=== PATIENT | male | born 1965 | race Caucasian/White ===

== ENCOUNTER 2022-05-03 14:17 | Inpatient (IN) ==
[2022-05-03] MEDS ORDERED: VANCOMYCIN HCL 1,750 MG in SODIUM CHLORIDE 0.9% 500 ML IV ONE (14:41)
[2022-05-03] MEDS ORDERED: cefTRIAXone SODIUM 2,000 MG/70 ML BAG IV STA (14:41)
[2022-05-03] MEDS ORDERED: VANCOMYCIN CONSULT ACTIVE PRN (14:41)
--- NOTE | 2022-05-03 14:53 | Emergency Department Note ---
Impression & Plan Cellulitis of left arm ED Provider Note Provider: Chester Marte MD DATE OF SERVICE: 05/03/2022 CHIEF COMPLAINT: Left arm pain HISTORY OF PRESENT ILLNESS: Patient is a 57-year-old gentleman referred to the ER today by his primary care office for redness swelling and pain of his left arm. Patient states really began this past Tuesday. Was doing some training at home and resting his left elbow. States it was a bit of blister or wound here. Arm has become swollen over the weekend now with some associated headache and diffuse redness and swelling of the elbow up his arm into the left armpit. Denies trauma. Did have a blister on his elbow according to him and his significant other did drains clearish fluid. Does report a small wound on his right index finger as well today smaller in nature that had a blister that burst. Denies fever but has been using Tylenol and ibuprofen regularly to help with headache. No trauma to the arm or head reported. Denies confusion or shortness of breath. Pain with certain movements particularly elbow and shoulder. No reported history of diabetes or other infections in the past or severe. PAST MEDICAL HISTORY: As noted above MEDICATIONS: Aspirin, multivitamin SOCIAL HISTORY: Smoker PHYSICAL EXAM: GENERAL: alert and oriented in no acute distress on stretcher Head: normocephalic and atraumatic EYES: No injection, discharge or icterus. NECK: Trachea midline. ENT: Mucous membranes pink and moist. LUNGS: Airway patent. No retractions. Breath sounds clear with good air entry bilaterally. HEART: Regular rate and rhythm. No chest wall tenderness ABDOMEN: Soft and non-tender, without guarding or rebound. SKIN: Acyanotic, warm, dry, without rashes EXTREMITIES: Without swelling, tenderness or deformity except: There is signifi cant erythema and swelling of the left mid forearm up towards the left shoulder ending at the left armpit. Not circumferential erythema of the upper arm. An approximately 2 cm broken blister of the left elbow noted with some trace serous discharge. NEUROLOGICAL: No aphasia. No facial droop or slurred speech. Sensation to gross touch normal. Ambulatory. Limitations of ROM of the left elbow and shoulder related to pain. Patient's laboratory studies and imaging reviewed. Differential includes Cellulitis, abscess, MRSA infection, DVT, necrotizing fasciitis, dermatitis, drug eruption, allergic reaction, as well as other pathologies. IMPRESSION/MEDICAL DECISION MAKING: Patient with onset of significant arm pain and swelling initially with a blister with some drainage presented today with significant left arm pain. Did review the office note from [facility] office earlier today. No significant trauma and lower suspicion for bony injury. Will complete CT of this to exclude significant collection as this appears infectious in nature. Neurovascular intact in the left hand but limited movement of the elbow and shoulder due to pain. Has been using ibuprofen and Tylenol regularly. Believe headache likely related to probable infection. Basic labs obtained as well as cultures. Will cover broadly with vancomycin and ceftriaxone at this point. Does not appear in septic shock. Blood work here with some slight hypokalemia and hyponatremia.Leukocytosis of almost 20 without anemia with some slight thrombocytopenia. Mild procalcitonin elevation. Mild lactate elevation 2.7. Creatinine of 1.24. Negative COVID. Note AST ALT elevation. CT report shows diffuse edema without gas identified with a nonspecific myositis of the left upper extremity musculature with a small necrotic bursal fluid collection with a small low-attenuation collection within the proximal extensor compartment of the forearm. Soft compartments and I doubt compartment syndrome at this point with intact distal perfusion of the left upper extremity. Discussed with orthopedics on-call Dr. Walden. Recommended IV antibiotics at this time. Patient requires further care here at the hospital. Patient updated at bedside. Discussed with the hospitalist team. DIAGNOSIS: Left upper arm cellulitis DISPOSITION: Hospitalist will evaluate Patient was agreeable with this plan. Past Med/Surg History Medical History Tobacco use disorder Ventral hernia Surgical History History of tonsillectomy Family History Father Colorectal cancer Social History Smoking Status: Current every day smoker Feels Safe at Home: Yes Allergies Allergies Allergy/AdvReac Type Severity Reaction Status Date / Time No Known Allergies Allergy Unverified 05/03/22 17:23 Home Meds Home Medications Medication Instructions Recorded Confirmed aspirin 81 mg tablet,delayed 81 mg PO DAILY 05/03/22 05/03/22 release multivitamin 1 tab PO DAILY 05/03/22 05/03/22 Results & Data (ED) Vital Signs Vital Signs - 24 hr 05/03/22 14:22 05/03/22 14:29 05/03/22 14:29 Temperature 36.5 C Temperature Source Temporal Artery Scan Pulse Rate 106 H Pulse Rate [Apical] Pulse Rate from SpO2 Sensor Respiratory Rate 20 Respiratory Effort / Characteristics Non-Labored Spontaneous Respiratory Depth Normal Respiratory Pattern Regular Blood Pressure 192/73 H Blood Pressure [Right Arm] Blood Pressure Mean 112 Blood Pressure Mean [Right Arm] Pulse Oximetry 98 98 98 Oxygen Delivery Method Room Air Sepsis Recent Fever Within 48 Hours No Sepsis New/Unexplained Change in Mental Status No Sepsis Action Taken by Nursing No Action Required 05/03/22 16:18 05/03/22 15:35 05/03/22 16:16 Temperature Temperature Source Pulse Rate 100 H 109 H Pulse Rate [Apical] 108 H Pulse Rate from SpO2 Sensor 100 H 104 H Respiratory Rate 22 16 Respiratory Effort / Characteristics Respiratory Depth Respiratory Pattern Blood Pressure Blood Pressure [Right Arm] 154/96 H Blood Pressure Mean Blood Pressure Mean [Right Arm] 115 Pulse Oximetry 99 100 98 Oxygen Delivery Method Sepsis Recent Fever Within 48 Hours Sepsis New/Unexplained Change in Mental Status Sepsis Action Taken by Nursing 05/03/22 16:17 05/03/22 16:17 05/03/22 16:30 Temperature Temperature Source Pulse Rate 108 H Pulse Rate [Apical] Pulse Rate from SpO2 Sensor 104 H Respiratory Rate 21 Respiratory Effort / Characteristics Respiratory Depth Respiratory Pattern Blood Pressure 154/96 H 164/98 H Blood Pressure [Right Arm] Blood Pressure Mean 115 120 Blood Pressure Mean [Right Arm] Pulse Oximetry 98 Oxygen Delivery Method Sepsis Recent Fever Within 48 Hours Sepsis New/Unexplained Change in Mental Status Sepsis Action Taken by Nursing 05/03/22 16:30 05/03/22 17:00 05/03/22 17:00 Temperature Temperature Source Pulse Rate 109 H 105 H Pulse Rate [Apical] Pulse Rate from SpO2 Sensor 113 H Respiratory Rate 18 26 H Respiratory Effort / Characteristics Respiratory Depth Respiratory Pattern Blood Pressure 152/73 H Blood Pressure [Right Arm] Blood Pressure Mean 99 Blood Pressure Mean [Right Arm] Pulse Oximetry 98 Oxygen Delivery Method Sepsis Recent Fever Within 48 Hours Sepsis New/Unexplained Change in Mental Status Sepsis Action Taken by Nursing 05/03/22 17:30 05/03/22 17:30 05/03/22 18:00 Temperature Temperature Source Pulse Rate 110 H Pulse Rate [Apical] Pulse Rate from SpO2 Sensor 110 H Respiratory Rate 23 Respiratory Effort / Characteristics Respiratory Depth Respiratory Pattern Blood Pressure 144/75 H 140/80 Blood Pressure [Right Arm] Blood Pressure Mean 98 100 Blood Pressure Mean [Right Arm] Pulse Oximetry 94 Oxygen Delivery Method Sepsis Recent Fever Within 48 Hours Sepsis New/Unexplained Change in Mental Status Sepsis Action Taken by Nursing 05/03/22 18:00 Temperature Temperature Source Pulse Rate 116 H Pulse Rate [Apical] Pulse Rate from SpO2 Sensor 117 H Respiratory Rate 33 H Respiratory Effort / Characteristics Respiratory Depth Respiratory Pattern Blood Pressure Blood Pressure [Right Arm] Blood Pressure Mean Blood Pressure Mean [Right Arm] Pulse Oximetry 96 Oxygen Delivery Method Sepsis Recent Fever Within 48 Hours Sepsis New/Unexplained Change in Mental Status Sepsis Action Taken by Nursing Laboratory Data 05/03/22 15:09 05/03/22 15:09 Lab Results 05/03/22 05/03/22 05/03/22 Range/Units 15:09 15:09 15:09 WBC 19.98 H (4.8-10.8) K/ul RBC 4.45 L (4.70-6.10) M/uL Hgb 14.6 (14.0-18.0) g/dl POC Hgb (14.0-18.0) g/dl Hct 41.5 L (42.0-52.0) % POC Hct (42-52) % MCV 93.3 (80.0-100.0) fL MCH 32.8 (25.0-34.0) pg MCHC 35.2 (32.0-36.0) g/dL RDW Std Deviation 45.3 (36.4-46.3) fL RDW Coeff of Cinthia 13.2 (11.5-14.5) % Plt Count 121 L (130-400) K/uL MPV 10.7 (9.4-12.4) fL Immature Gran % (Auto) 0.4 % Neut % (Auto) 94.3 % Lymph % (Auto) 1.8 % [place] % (Auto) 2.2 % Eos % (Auto) 0.5 % Baso % (Auto) 0.8 % Neut # (Auto) 18.88 H (1.40-6.50) K/uL Lymph # (Auto) 0.35 L (1.2-3.4) K/uL [place] # (Auto) 0.43 (0.11-0.59) K/uL Eos # (Auto) 0.10 (0-0.50) K/uL Baso # (Auto) 0.15 (0-0.2) K/uL Immature Gran # (Auto) 0.07 (0.01-0.20) K/uL Toxic Granulation 1+ Dohle Bodies Occasional PT 10.9 (9.0-12.0) Seconds INR 1.0 (0.9-1.1) APTT 32.8 H (21.0-31.0) Seconds PTT Ratio 1.2 POC Sodium (135-144) mmol/L Sodium 129 L (136-145) mmol/L POC Potassium (3.3-5.0) mmol/L Potassium 3.3 L (3.5-5.1) mmol/L POC Chloride (101-112) mmol/L Chloride 94 L (98-107) mmol/L Carbon Dioxide 25 (21-32) mmol/L POC Total CO2 (24-31) mmol/L Anion Gap 10 (3-11) POC Anion Gap (16-25) mmol/L POC BUN (7-18) mg/dl BUN 29 H (6-23) mg/dl Creatinine 1.24 (0.6-1.4) mg/dl POC Creatinine (0.6-1.3) mg/dl Est Cr Clr Drug Dosing 67.8 ml/min Est GFR ( Amer) 73.3 ml/min Est GFR (Non-Af Amer) 63.2 ml/min BUN/Creatinine Ratio 23.4 H (10-20) Glucose 162 H (70-99(Fasting)) mg/dl POC Glucose (other) (70-99) mg/dl Lactate (0.4-2.0) mmol/L Calcium 8.9 (8.5-10.1) mg/dl POC Ioniz Calcium Cris (1.12-1.32) mmol/l Magnesium 2.1 (1.7-2.4) mg/dl Total Bilirubin 0.6 (0.2-1.0) mg/dl AST 37 (13-39) U/L ALT 49 (7-52) U/L Alkaline Phosphatase 83 (34-104) U/L Total Protein 7.1 (6.0-8.3) gm/dl Albumin 3.5 (3.4-5.0) gm/dl Globulin 3.6 (2.5-4.0) gm/dl Albumin/Globulin Ratio 1.0 (0.9-2) Procalcitonin (0-0.5) ng/ml SARS-CoV-2, RNA, NAAT (NEGATIVE) 05/03/22 05/03/22 05/03/22 Range/Units 15:09 15:09 15:36 WBC (4.8-10.8) K/ul RBC (4.70-6.10) M/uL Hgb (14.0-18.0) g/dl POC Hgb 16.0 (14.0-18.0) g/dl Hct (42.0-52.0) % POC Hct 47 (42-52) % MCV (80.0-100.0) fL MCH (25.0-34.0) pg MCHC (32.0-36.0) g/dL RDW Std Deviation (36.4-46.3) fL RDW Coeff of Cinthia (11.5-14.5) % Plt Count (130-400) K/uL MPV (9.4-12.4) fL Immature Gran % (Auto) % Neut % (Auto) % Lymph % (Auto) % [place] % (Auto) % Eos % (Auto) % Baso % (Auto) % Neut # (Auto) (1.40-6.50) K/uL Lymph # (Auto) (1.2-3.4) K/uL [place] # (Auto) (0.11-0.59) K/uL Eos # (Auto) (0-0.50) K/uL Baso # (Auto) (0-0.2) K/uL Immature Gran # (Auto) (0.01-0.20) K/uL Toxic Granulation Dohle Bodies PT (9.0-12.0) Seconds INR (0.9-1.1) APTT (21.0-31.0) Seconds PTT Ratio POC Sodium 130 L (135-144) mmol/L Sodium (136-145) mmol/L POC Potassium 3.4 (3.3-5.0) mmol/L Potassium (3.5-5.1) mmol/L POC Chloride 94 L (101-112) mmol/L Chloride (98-107) mmol/L Carbon Dioxide (21-32) mmol/L POC Total CO2 27 (24-31) mmol/L Anion Gap (3-11) POC Anion Gap 13.0 L (16-25) mmol/L POC BUN 27 H (7-18) mg/dl BUN (6-23) mg/dl Creatinine (0.6-1.4) mg/dl POC Creatinine 1.3 (0.6-1.3) mg/dl Est Cr Clr Drug Dosing ml/min Est GFR ( Amer) ml/min Est GFR (Non-Af Amer) ml/min BUN/Creatinine Ratio (10-20) Glucose (70-99(Fasting)) mg/dl POC Glucose (other) 141 H (70-99) mg/dl Lactate 2.7 H* (0.4-2.0) mmol/L Calcium (8.5-10.1) mg/dl POC Ioniz Calcium Cris 1.13 (1.12-1.32) mmol/l Magnesium (1.7-2.4) mg/dl Total Bilirubin (0.2-1.0) mg/dl AST (13-39) U/L ALT (7-52) U/L Alkaline Phosphatase (34-104) U/L Total Protein (6.0-8.3) gm/dl Albumin (3.4-5.0) gm/dl Globulin (2.5-4.0) gm/dl Albumin/Globulin Ratio (0.9-2) Procalcitonin 1.79 H (0-0.5) ng/ml SARS-CoV-2, RNA, NAAT (NEGATIVE) 05/03/22 05/03/22 Range/Units 15:43 17:12 WBC (4.8-10.8) K/ul RBC (4.70-6.10) M/uL Hgb (14.0-18.0) g/dl POC Hgb (14.0-18.0) g/dl Hct (42.0-52.0) % POC Hct (42-52) % MCV (80.0-100.0) fL MCH (25.0-34.0) pg MCHC (32.0-36.0) g/dL RDW Std Deviation (36.4-46.3) fL RDW Coeff of Cinthia (11.5-14.5) % Plt Count (130-400) K/uL MPV (9.4-12.4) fL Immature Gran % (Auto) % Neut % (Auto) % Lymph % (Auto) % [place] % (Auto) % Eos % (Auto) % Baso % (Auto) % Neut # (Auto) (1.40-6.50) K/uL Lymph # (Auto) (1.2-3.4) K/uL [place] # (Auto) (0.11-0.59) K/uL Eos # (Auto) (0-0.50) K/uL Baso # (Auto) (0-0.2) K/uL Immature Gran # (Auto) (0.01-0.20) K/uL Toxic Granulation Dohle Bodies PT (9.0-12.0) Seconds INR (0.9-1.1) APTT (21.0-31.0) Seconds PTT Ratio POC Sodium (135-144) mmol/L Sodium (136-145) mmol/L POC Potassium (3.3-5.0) mmol/L Potassium (3.5-5.1) mmol/L POC Chloride (101-112) mmol/L Chloride (98-107) mmol/L Carbon Dioxide (21-32) mmol/L POC Total CO2 (24-31) mmol/L Anion Gap (3-11) POC Anion Gap (16-25) mmol/L POC BUN (7-18) mg/dl BUN (6-23) mg/dl Creatinine (0.6-1.4) mg/dl POC Creatinine (0.6-1.3) mg/dl Est Cr Clr Drug Dosing ml/min Est GFR ( Amer) ml/min Est GFR (Non-Af Amer) ml/min BUN/Creatinine Ratio (10-20) Glucose (70-99(Fasting)) mg/dl POC Glucose (other) (70-99) mg/dl Lactate 1.6 (0.4-2.0) mmol/L Calcium (8.5-10.1) mg/dl POC Ioniz Calcium Cris (1.12-1.32) mmol/l Magnesium (1.7-2.4) mg/dl Total Bilirubin (0.2-1.0) mg/dl AST (13-39) U/L ALT (7-52) U/L Alkaline Phosphatase (34-104) U/L Total Protein (6.0-8.3) gm/dl Albumin (3.4-5.0) gm/dl Globulin (2.5-4.0) gm/dl Albumin/Globulin Ratio (0.9-2) Procalcitonin (0-0.5) ng/ml SARS-CoV-2, RNA, NAAT NEGATIVE (NEGATIVE) Administered Medications Discontinued Medications Hydromorphone HCl (Hydromorphone Inj 0.5 Mg/0.5 Ml Syr) 0.5 mg IV NOW STA Stop: 05/03/22 19:01 Last Admin: 05/03/22 19:20 Dose: 0.5 mg Documented By: KAYLYNN Vancomycin HCl 1,750 mg/ (Sodium Chloride) 535 mls @ 200 mls/hr IV NOW ONE Stop: 05/03/22 17:21 Last Admin: 05/03/22 15:26 Dose: 200 mls/hr Documented By: ANTHONY Ceftriaxone Sodium (Rocephin) 2,000 mg in 70 mls @ 140 mls/hr IV NOW STA Stop: 05/03/22 15:10 Last Infusion: 05/03/22 17:12 Dose: 0 mls/hr Documented By: Admin: 05/03/22 15:40 Dose: 140 mls/hr Documented By: KAYLYNN Lactated Ringer's (Lr) 1,000 mls @ 999 mls/hr IV .Q1H1M ONE Stop: 05/03/22 16:44 Last Infusion: 05/03/22 17:19 Dose: 0 mls/hr Documented By: Admin: 05/03/22 16:17 Dose: 999 mls/hr Documented By: KAYLYNN Lactated Ringer's (Lr) 1,000 mls @ 999 mls/hr IV .Q1H1M ONE Stop: 05/03/22 16:48 Last Infusion: 05/03/22 17:19 Dose: 0 mls/hr Documented By: Admin: 05/03/22 16:17 Dose: 999 mls/hr Documented By: KAYLYNN Ioversol (Optiray 350 100ml) 90 ml IV ONCE ONE Stop: 05/03/22 16:09 Last Admin: 05/03/22 16:08 Dose: 90 ml Documented By: CRUZ Morphine Sulfate (Morphine Sulfate 4 Mg/Ml 1 Ml Carp\Vial) 4 mg IV NOW STA Stop: 05/03/22 16:22 Last Admin: 05/03/22 16:25 Dose: 4 mg Documented By: AY Imaging Data Radiologist's Impression: Forearm CT 05/03/22 14:42 CT SCAN OF THE LEFT HUMERUS WITH IV CONTRAST; CT SCAN OF THE LEFT FOREARM WITH IV CONTRAST. CLINICAL HISTORY: Elbow swelling and infection. COMPARISON STUDY: No priors. TECHNIQUE: CT scan of the left humerus is performed from the shoulder to the elbow, and CT scan of the left forearm is performed from the elbow to the wrist following the IV administration of 90 cc of Optiray 350. Images for both examinations are reviewed in the axial, sagittal, and coronal planes. IV contrast was administered without complication. A dose lowering technique was utilized adhering to the principles of ALARA. The examination is degraded by streak artifact from the arm abutting the CT gantry. Note that interpretation is significantly suboptimal without plain film correlate. CT DOSE: 1158.47 mGy.cm FINDINGS: The skeletal structures are well mineralized for age. There is no evidence of fracture involving the left humerus, the left radius, or the left ulna. There is no bony erosion or periostitis. The shoulder, elbow, and wrist joints are grossly maintained. There is diffuse superficial and deep soft tissue edema and fluid identified throughout the left upper extremity. This tracks along the myofascial planes. Edema extends from the proximal humerus to the wrist, and is greatest around the left elbow. A small bursal fluid collection posterior to the olecranon process measures approximately 3 x 1 cm. No soft tissue gas is seen within the left upper extremity. The upper extremity musculature is markedly heterogeneous. Question a fluid collection within the extensor compartment of the forearm on axial image #47 measuring approximately 2.5 x 1 cm. The regional vessels appear patent. Prominent left axillary lymph nodes measure up to 2.1 cm in length and are likely reactive. IMPRESSION: 1. The examination is significantly degraded by streak artifact. 2. No bony abnormality seen involving the left humerus or forearm. 3. Superficial and deep soft tissue edema is present throughout the left upper extremity as above. Correlate clinically for evidence of cellulitis/infection. No soft tissue gas is identified. 4. There is marked heterogeneity throughout the left upper extremity musculature consistent with a nonspecific myositis. This may be infectious. Rhabdomyolysis could also potentially have this appearance and clinical correlation will be essential. 5. There is a small olecranon bursal fluid collection. The sterility of this fluid cannot be assessed by imaging. 6. Question an additional small low-attenuation collection within the proximal extensor compartment of the forearm. Again, the sterility of this fluid cannot be assessed by imaging. ACT 112: Negative or not required by law. Electronically signed by: Jorge Mccabe M.D. 05/03/2022 4:[address] 05/03/22 14:42 CT SCAN OF THE LEFT HUMERUS WITH IV CONTRAST; CT SCAN OF THE LEFT FOREARM WITH IV CONTRAST. CLINICAL HISTORY: Elbow swelling and infection. COMPARISON STUDY: No priors. TECHNIQUE: CT scan of the left humerus is performed from the shoulder to the elbow, and CT scan of the left forearm is performed from the elbow to the wrist following the IV administration of 90 cc of Optiray 350. Images for both examinations are reviewed in the axial, sagittal, and coronal planes. IV contrast was administered without complication. A dose lowering technique was utilized adhering to the principles of ALARA. The examination is degraded by streak artifact from the arm abutting the CT gantry. Note that interpretation is significantly suboptimal without plain film correlate. CT DOSE: 1158.47 mGy.cm FINDINGS: The skeletal structures are well mineralized for age. There is no evidence of fracture involving the left humerus, the left radius, or the left ulna. There is no bony erosion or periostitis. The shoulder, elbow, and wrist joints are grossly maintained. There is diffuse superficial and deep soft tissue edema and fluid identified throughout the left upper extremity. This tracks along the myofascial planes. Edema extends from the proximal humerus to the wrist, and is greatest around the left elbow. A small bursal fluid collection posterior to the olecranon process measures approximately 3 x 1 cm. No soft tissue gas is seen within the left upper extremity. The upper extremity musculature is markedly heterogeneous. Question a fluid collection within the extensor compartment of the forearm on axial image #47 measuring approximately 2.5 x 1 cm. The regional vessels appear patent. Prominent left axillary lymph nodes measure up to 2.1 cm in length and are likely reactive. IMPRESSION: 1. The examination is significantly degraded by streak artifact. 2. No bony abnormality seen involving the left humerus or forearm. 3. Superficial and deep soft tissue edema is present throughout the left upper extremity as above. Correlate clinically for evidence of cellulitis/infection. No soft tissue gas is identified. 4. There is marked heterogeneity throughout the left upper extremity musculature consistent with a nonspecific myositis. This may be infectious. Rhabdomyolysis could also potentially have this appearance and clinical correlation will be essential. 5. There is a small olecranon bursal fluid collection. The sterility of this fluid cannot be assessed by imaging. 6. Question an additional small low-attenuation collection within the proximal extensor compartment of the forearm. Again, the sterility of this fluid cannot be assessed by imaging. ACT 112: Negative or not required by law. Electronically signed by: Jorge Mccabe M.D. 05/03/2022 4:40 PM Discharge Plan Visit Data Chief Complaint: Arm Pain Stated Complaint: CELLULITE IN THE ARM ED Provider: Chester Marte Discharge Problem: Cellulitis of left arm Patient Disposition: Admitted As Inpatient Discharge Instructions Interventions: ED Discharge Assessment Last Done: 05/03/22 19:48
[2022-05-03 15:37] LABS: Partial Thromboplastin Ratio 1.2; Partial Thromboplastin Time 32.8 Seconds (21.0-31.0); Prothrombin Time 10.9 Seconds (9.0-12.0)
[2022-05-03 15:40] LABS: Albumin Level 3.5 gm/dl (3.4-5.0); Bilirubin,Total 0.6 mg/dl (0.2-1.0); Calcium 8.9 mg/dl (8.5-10.1); Magnesium 2.1 mg/dl (1.7-2.4); Potassium 3.3 mmol/L (3.5-5.1)
[2022-05-03] MEDS ORDERED: LACTATED RINGER'S 1,000 ML IV ONE ×2 (15:44→15:48)
[2022-05-03 15:46] LABS: BUN Creatinine Ratio 23.4 (10-20); Basophils # (auto) 0.15 K/uL (0-0.2); Basophils % (auto) 0.8 %; Creatinine Clr Calc Pharmacy 67.8 ml/min; Dohle Bodies Occasional; Eosinophils % (auto) 0.5 %; Est GFR (African American) 73.3 ml/min; Est GFR (Non-African American) 63.2 ml/min; Globulin 3.6 gm/dl (2.5-4.0); Hematocrit (blood only) 41.5 % (42.0-52.0); Hemoglobin 14.6 g/dl (14.0-18.0); Immature Granulocytes # (auto) 0.07 K/uL (0.01-0.20); Immature Granulocytes % (auto) 0.4 %; Lymphocytes # (auto) 0.35 K/uL (1.2-3.4); Lymphocytes % (auto) 1.8 %; Mean Corpuscular Hemoglobin 32.8 pg (25.0-34.0); Mean Corpuscular Hgb Conc 35.2 g/dL (32.0-36.0); Mean Corpuscular Volume 93.3 fL (80.0-100.0); Mean Platelet Volume 10.7 fL (9.4-12.4); Monocytes # (auto) 0.43 K/uL (0.11-0.59); Monocytes % (auto) 2.2 %; Neutrophils # (auto) 18.88 K/uL (1.40-6.50); Neutrophils % (auto) 94.3 %; Platelet Count 121 K/uL (130-400); RDW Coefficient of Variation 13.2 % (11.5-14.5); RDW Standard Deviation 45.3 fL (36.4-46.3); Red Blood Count 4.45 M/uL (4.70-6.10); Total Protein 7.1 gm/dl (6.0-8.3); Toxic Granulation 1+; White Blood Count 19.98 K/ul (4.8-10.8)
[2022-05-03 15:48] LABS: iSTAT Creatinine 1.3 mg/dl (0.6-1.3); iSTAT Ionized Calcium 1.13 mmol/l (1.12-1.32); iSTAT Potassium 3.4 mmol/L (3.3-5.0)
[2022-05-03] MEDS ORDERED: OPTIRAY 350 100ml IV ONE (16:08)
[2022-05-03] MEDS ORDERED: MoRPHine SULFATE 4 MG/ML 1 ML CARP\\VIAL IV STA (16:21)
--- NOTE | 2022-05-03 16:42 | CT Scan Report ---
CT SCAN OF THE LEFT HUMERUS WITH IV CONTRAST; CT SCAN OF THE LEFT FOREARM WITH IV CONTRAST. CLINICAL HISTORY: Elbow swelling and infection. COMPARISON STUDY: No priors. TECHNIQUE: CT scan of the left humerus is performed from the shoulder to the elbow, and CT scan of th e left forearm is performed from the elbow to the wrist following the IV administration of 90 cc of O ptiray 350. Images for both examinations are reviewed in the axial, sagittal, and coronal planes. IV contrast was administered without complication. A dose lowering technique was utilized adhering to [facility] principles of ALARA. The examination is degraded by streak artifact from the arm abutting the CT ga ntry. Note that interpretation is significantly suboptimal without plain film correlate. CT DOSE: 1158.47 mGy.cm FINDINGS: The skeletal structures are well mineralized for age. There is no evidence of fracture invo lving the left humerus, the left radius, or the left ulna. There is no bony erosion or periostitis. T he shoulder, elbow, and wrist joints are grossly maintained. There is diffuse superficial and deep so ft tissue edema and fluid identified throughout the left upper extremity. This tracks along the myofa scial planes. Edema extends from the proximal humerus to the wrist, and is greatest around the left e lbow. A small bursal fluid collection posterior to the olecranon process measures approximately 3 x 1 cm. No soft tissue gas is seen within the left upper extremity. The upper extremity musculature is m arkedly heterogeneous. Question a fluid collection within the extensor compartment of the forearm on axial image #47 measuring approximately 2.5 x 1 cm. The regional vessels appear patent. Prominent lef t axillary lymph nodes measure up to 2.1 cm in length and are likely reactive. IMPRESSION: 1. The examination is significantly degraded by streak artifact. 2. No bony abnormality seen involving the left humerus or forearm. 3. Superficial and deep soft tissue edema is present throughout the left upper extremity as above. Co rrelate clinically for evidence of cellulitis/infection. No soft tissue gas is identified. 4. There is marked heterogeneity throughout the left upper extremity musculature consistent with a no nspecific myositis. This may be infectious. Rhabdomyolysis could also potentially have this appearanc e and clinical correlation will be essential. 5. There is a small olecranon bursal fluid collection. The sterility of this fluid cannot be assessed by imaging. 6. Question an additional small low-attenuation collection within the proximal extensor compartment o f the forearm. Again, the sterility of this fluid cannot be assessed by imaging. ACT 112: Negative or not required by law. Electronically signed by: Jorge Mccabe M.D. 05/03/2022 4:40 PM
--- NOTE | 2022-05-03 17:34 | History & Physical Report ---
Date of Service May 03, 2022 Assessment & Plan (1) Sepsis: Plan: Pt presented with tachycardia, tachypnea, leukocytosis, and elevated lactate with identified source of infection of left UE cellulitis with presumed abscess based on imaging. Lactate improved from 2.7 to 1.6 with IVF resuscitation in the ED. Area of erythema and swelling marked by ortho today - will continue to monitor. - Admit to PCU - Continue broad-spectrum IV antibiotics started in the ED - Daily labs - Appreciate ortho input - tentative plan for OR on so will make NPO after midnight tomorrow night - Pain control (2) Abscess of left arm: Plan: See plan for #1 (3) Cellulitis of left arm: Plan: See plan for #1 Plan Pt seen and reviewed with collaborating physician, Dr. Sommers. Plan of care discussed and as outlined above. Code Status: Full Code DVT Prophylaxis: SCDs for now pending potential OR Juany Jose PA-C History of Present Illness Chief Complaint: left upper extremity redness and swelling Primary Care Provider: Ender Alarcon PA-C This is a 57 y/o male with a PMH of ventral hernia and tobacco use who presents to the ED from his PCP office with progressive redness, swelling and pain in his left elbow and upper extremity. Pt reports dry cracked skin on the elbow as an ongoing issue. Picked at the area three days ago and noted an open area afterwards. Since then he has developed redness on the surrounding area, pain, and swelling which has gradually worsened since then. Limited ability to move the elbow due to the swelling and pain. May have numbness, tingling, burning sensation in hand, mostly when he's walking around and the arm is down by his side. This improves with sitting and elevating the extremity. Chills x 2 days. No documented fevers. Clear and purulent drainage from area over the weekend but only small amounts at a time. No bleeding from the area. Headache x 2 days. Chronic back pain but no worse than usual. Loss of appetite, stomach feels unsettled but no nausea or vomiting. Has been taking ibuprofen and acetaminophen "by the handful" multiple times per day for the pain with limited relief. Estimates 5-6 ibuprofen at a time, 4 acetaminophen. No similar symptoms prior. He had a follow-up appt for his back scheduled today and brought up the arm when he was there. Allergies Allergy/AdvReac Type Severity Reaction Status Date / Time No Known Allergies Allergy Unverified 05/03/22 17:23 Home Medications Medication Instructions Recorded Confirmed Type aspirin 81 mg tablet,delayed 81 mg PO DAILY 05/03/22 05/03/22 History release multivitamin 1 tab PO DAILY 05/03/22 05/03/22 History Past Med/Surg History Medical History Tobacco use disorder Ventral hernia Surgical History History of tonsillectomy Family History Father Colorectal cancer Social History Smoking Status: Current every day smoker Feels Safe at Home: Yes Review of Systems Review of Systems: All systems reviewed & are unremarkable except as noted in HPI & below Constitutional: + chills, + fatigue and + anorexia; no fever Eyes: no diplopia and no worsening vision Ear, Nose, Mouth, Throat: no nasal congestion, no nasal discharge and no sore throat Respiratory: no cough and no dyspnea Cardiovascular: no chest pain, no palpitations and no syncope Gastrointestinal: no nausea, no vomiting and no diarrhea/loose stools Genitourinary: no dysuria or no hematuria Musculoskeletal: as per Subjective / HPI and + back pain Integumentary: as per Subjective / HPI Neurologic: + tingling, + numbness and + headache(s); no dizziness and no confusion Psychiatric: no depression and no anxiety Physical Exam Constitutional: well developed and well nourished; no acute distress Eyes: + anicteric sclerae Neck: trachea midline Respiratory: no respiratory distress and no labored breathing Auscultation: lungs clear to auscultation bilaterally; no rales, no rhonchi and no wheezes Cardiovascular: Rate/Rhythm: regular rhythm and + tachycardic Vessels: dorsalis pedis pulses present and radial pulses present Extremities: no pedal edema Gastrointestinal (Abdomen): Inspection/Auscultation: normal bowel sounds; abdomen not distended Percussion/Palpation: abdomen soft; abdomen nontender Musculoskeletal: marked edema and tenderness of the LUE from wrist to axilla; able to move fingers, bakery decorator intact, but extremely limited flexion of left elbow due to swelling and pain; tender to touch, markedly over the left elbow joint but tenderness extends over entire swollen area; no significant left axillary or infraclavicular LAD Skin: erythema and warmth extending from left elbow, both distal and proximally - area marked by orthopedics to monitor for further extension Neurologic: sensation intact left hand Psychiatric: A+Ox3, euthymic affect Results & Data Results & Data ([facility]) Vital Signs (Past 12 Hours) Vital Signs Temp Pulse Pulse Resp BP BP Pulse Ox 05/03/22 16:18 108 H 22 154/96 H 99 05/03/22 14:29 98 05/03/22 14:29 98 05/03/22 14:22 36.5 C 106 H 20 192/73 H 98 O2 Del Method 05/03/22 16:18 05/03/22 14:29 05/03/22 14:29 05/03/22 14:22 Room Air Laboratory Results Laboratory Results - last 24 hr 05/03/22 05/03/22 05/03/22 15:09 15:09 15:09 WBC 19.98 H RBC 4.45 L Hgb 14.6 POC Hgb Hct 41.5 L POC Hct MCV 93.3 MCH 32.8 MCHC 35.2 RDW Std Deviation 45.3 RDW Coeff of Cinthia 13.2 Plt Count 121 L MPV 10.7 Immature Gran % (Auto) 0.4 Neut % (Auto) 94.3 Lymph % (Auto) 1.8 Warrick % (Auto) 2.2 Eos % (Auto) 0.5 Baso % (Auto) 0.8 Neut # (Auto) 18.88 H Lymph # (Auto) 0.35 L Warrick # (Auto) 0.43 Eos # (Auto) 0.10 Baso # (Auto) 0.15 Immature Gran # (Auto) 0.07 Toxic Granulation 1+ Dohle Bodies Occasional PT 10.9 INR 1.0 APTT 32.8 H PTT Ratio 1.2 POC Sodium Sodium 129 L POC Potassium Potassium 3.3 L POC Chloride Chloride 94 L Carbon Dioxide 25 POC Total CO2 Anion Gap 10 POC Anion Gap POC BUN BUN 29 H Creatinine 1.24 POC Creatinine Est Cr Clr Drug Dosing 67.8 Est GFR ( Amer) 73.3 Est GFR (Non-Af Amer) 63.2 BUN/Creatinine Ratio 23.4 H Glucose 162 H POC Glucose (other) Lactate Calcium 8.9 POC Ioniz Calcium Cris Magnesium 2.1 Total Bilirubin 0.6 AST 37 ALT 49 Alkaline Phosphatase 83 Total Protein 7.1 Albumin 3.5 Globulin 3.6 Albumin/Globulin Ratio 1.0 Procalcitonin SARS-CoV-2, RNA, NAAT 05/03/22 05/03/22 05/03/22 15:09 15:09 15:36 WBC RBC Hgb POC Hgb 16.0 Hct POC Hct 47 MCV MCH MCHC RDW Std Deviation RDW Coeff of Cinthia Plt Count MPV Immature Gran % (Auto) Neut % (Auto) Lymph % (Auto) Warrick % (Auto) Eos % (Auto) Baso % (Auto) Neut # (Auto) Lymph # (Auto) Warrick # (Auto) Eos # (Auto) Baso # (Auto) Immature Gran # (Auto) Toxic Granulation Dohle Bodies PT INR APTT PTT Ratio POC Sodium 130 L Sodium POC Potassium 3.4 Potassium POC Chloride 94 L Chloride Carbon Dioxide POC Total CO2 27 Anion Gap POC Anion Gap 13.0 L POC BUN 27 H BUN Creatinine POC Creatinine 1.3 Est Cr Clr Drug Dosing Est GFR ( Amer) Est GFR (Non-Af Amer) BUN/Creatinine Ratio Glucose POC Glucose (other) 141 H Lactate 2.7 H* Calcium POC Ioniz Calcium Cris 1.13 Magnesium Total Bilirubin AST ALT Alkaline Phosphatase Total Protein Albumin Globulin Albumin/Globulin Ratio Procalcitonin 1.79 H SARS-CoV-2, RNA, NAAT 05/03/22 05/03/22 15:43 17:12 WBC RBC Hgb POC Hgb Hct POC Hct MCV MCH MCHC RDW Std Deviation RDW Coeff of Cinthia Plt Count MPV Immature Gran % (Auto) Neut % (Auto) Lymph % (Auto) Warrick % (Auto) Eos % (Auto) Baso % (Auto) Neut # (Auto) Lymph # (Auto) Warrick # (Auto) Eos # (Auto) Baso # (Auto) Immature Gran # (Auto) Toxic Granulation Dohle Bodies PT INR APTT PTT Ratio POC Sodium Sodium POC Potassium Potassium POC Chloride Chloride Carbon Dioxide POC Total CO2 Anion Gap POC Anion Gap POC BUN BUN Creatinine POC Creatinine Est Cr Clr Drug Dosing Est GFR ( Amer) Est GFR (Non-Af Amer) BUN/Creatinine Ratio Glucose POC Glucose (other) Lactate Pending Calcium POC Ioniz Calcium Cris Magnesium Total Bilirubin AST ALT Alkaline Phosphatase Total Protein Albumin Globulin Albumin/Globulin Ratio Procalcitonin SARS-CoV-2, RNA, NAAT NEGATIVE Diagnostic Findings CT left forearm/humerus 05/03/22 - IMPRESSION: 1. The examination is significantly degraded by streak artifact. 2. No bony abnormality seen involving the left humerus or forearm. 3. Superficial and deep soft tissue edema is present throughout the left upper extremity as above. Correlate clinically for evidence of cellulitis/infection. No soft tissue gas is identified. 4. There is marked heterogeneity throughout the left upper extremity musculature consistent with a nonspecific myositis. This may be infectious. Rhabdomyolysis could also potentially have this appearance and clinical correlation will be essential. 5. There is a small olecranon bursal fluid collection. The sterility of this fluid cannot be assessed by imaging. 6. Question an additional small low-attenuation collection within the proximal extensor compartment of the forearm. Again, the sterility of this fluid cannot be assessed by imaging. Medications Administered Discontinued Medications Vancomycin HCl 1,750 mg/ (Sodium Chloride) 535 mls @ 200 mls/hr IV NOW ONE Stop: 05/03/22 17:21 Last Admin: 05/03/22 15:26 Dose: 200 mls/hr Documented By: ANTHONY Ceftriaxone Sodium (Rocephin) 2,000 mg in 70 mls @ 140 mls/hr IV NOW STA Stop: 05/03/22 15:10 Last Infusion: 05/03/22 17:12 Dose: 0 mls/hr Documented By: Admin: 05/03/22 15:40 Dose: 140 mls/hr Documented By: KAYLYNN Lactated Ringer's (Lr) 1,000 mls @ 999 mls/hr IV .Q1H1M ONE Stop: 05/03/22 16:44 Last Infusion: 05/03/22 17:19 Dose: 0 mls/hr Documented By: Admin: 05/03/22 16:17 Dose: 999 mls/hr Documented By: KAYLYNN Lactated Ringer's (Lr) 1,000 mls @ 999 mls/hr IV .Q1H1M ONE Stop: 02/06/23 16:48 Last Infusion: 05/03/22 17:19 Dose: 0 mls/hr Documented By: Admin: 05/03/22 16:17 Dose: 999 mls/hr Documented By: KAYLYNN Ioversol (Optiray 350 100ml) 90 ml IV ONCE ONE Stop: 05/03/22 16:09 Last Admin: 05/03/22 16:08 Dose: 90 ml Documented By: CRUZ Morphine Sulfate (Morphine Sulfate 4 Mg/Ml 1 Ml Carp\\Vial) 4 mg IV NOW STA Stop: 05/03/22 16:22 Last Admin: 05/03/22 16:25 Dose: 4 mg Documented By: KAYLYNN Supervising Physician Co-Signing Physician Notes I have seen and examined the patient and have discussed the case with the provider above. I agree with the assessment and plan as stated with the following exceptions. The patient is a 57-year-old man presenting with progressive redness swelling and pain in his left elbow. He has a significant cellulitis with CT scan revealing nonspecific myositis. No soft tissue gas is identified. Orthopedics saw the patient and was planning to consider an incision and drainage in a coupl e of days after documenting response to broad-spectrum IV antibiotics. The patient reports pain is uncontrolled and is being switched to Dilaudid, scheduled acetaminophen and tramadol. He also reports a headache and states that he has not had much caffeine or food in the last couple of days secondary to feeling poorly. We discussed that he may be having a bit of caffeine withdrawal. On physical exam he is in no acute distress. MEntating clearly and poor dentition. He has limited motion of the left upper extremity. Left upper extremity is very swollen around the olecranon with both proximal and distal extending erythema. There is limited range of motion of the left upper extremity specifically with flexion extension at the elbow. Lungs are clear to auscultation bilaterally. Cardiac exam is benign, abdominal exam is benign. Skin is otherwise warm and dry. Vital signs reflect a state of inflammation with tachycardia and possible developing sepsis. Work-up includes a white blood cell count of 20,000, normal H&H, platelet count of 121, possible consumption in sepsis and a left shift on the differential. Sodium is 129, potassium 3.3, chloride 94, BUN 29, creatinine 1.24. This chemistry is reflective of somebody who has not been eating and may be mildly dehydrated. This is consistent with his recent history of poor p.o. intake and current sepsis picture. Lactate was 2.7 and he was resuscitated with IV fluids with a repeat lactate of 1.6. Procalcitonin is elevated at 1.79 supportive with diagnosis of sepsis. Blood cultures are pending. This is a 57-year-old man with sepsis secondary to left upper extremity cellulitis and questionable myositis/fluid collection present. Differential diagnosis includes but is not limited to necrotizing myositis/fascitis vs deepali lulitis of the LUE. Pathogens to consider in this scenario include group A (beta hemolytic) streptococcus and clostridium perfringens. Continue broad- spectrum antibiotics to include coverage of MRSA, gram positives, gram negatives, anaerobes and include clindamycin for its antitoxin effects against toxin-elaborating strains of beta-hemolytic streptococci and S. Aureus. He has been resuscitated from a sepsis standpoint. Consider additional washout per orthopedics pending response to IV antibiotics. Continue with pain control, antiemetics as needed and support on telemetry. Give trial of caffeine for headache as he may have an ongoing withdrawal headache. was at bedside and agrees with the plan. Smoking cessation advised. DO Matthieu
--- NOTE | 2022-05-03 17:59 | Orthopedic Consultation ---
Date of Consultation May 03, 2022 Assessment & Plan (1) Cellulitis of left arm: I reviewed the patient's CT scan of his left humerus and left forearm. Extensive cellulitis with 2 small ill-defined areas of fluid collection concerning for abscess. The location of these fluid collections are not clearly obvious on his physical exam today. Discussed with the patient that he needs to come in to the hospital for IV antibiotics. He will be admitted to the internal medicine service. The IV antibiotic should help to treat the cellulitis and improve the swelling so we can get a better idea of where exactly his abscesses are located. We will temporarily plan on taking him to the operating room on Tuesday of this week. He is not currently septic therefore there is not a surgical emergency here. We will follow his blood cultures. He may need a PICC line but will need to have negative blood cultures for 48 hours. We will plan on obtaining deep wound cultures at the time of surgery. Needs to be n.p.o. after midnight tomorrow night on Tuesday. Please feel free to contact orthopedics with any questions. (2) Abscess of left arm: Plan Left arm cellulitis History of Present Illness History of Present Illness Patient is a 57-year-old gentleman referred to the ER today by his primary care office for redness swelling and pain of his left arm. Patient states began this past Tuesday. Was doing some training at home and resting his left elbow. States it was a bit of blister or wound there and he was picking at it. Arm has become swollen over the weekend now with some associated headache and diffuse redness and swelling of the elbow up his arm into the left armpit. Denies trauma. Did have a blister on his elbow according to him and his significant other did drain some clearish fluid. Denies fever but has been using Tylenol and ibuprofen regularly to help with headache. No trauma to the arm or head reported. Denies confusion or shortness of breath. Pain with certain movements particularly elbow and shoulder. No reported history of diabetes or other infections in the past or severe. Allergies Allergy/AdvReac Type Severity Reaction Status Date / Time No Known Allergies Allergy Unverified 05/03/22 17:23 Home Medications Medication Instructions Recorded Confirmed Type aspirin 81 mg tablet,delayed 81 mg PO DAILY 05/03/22 05/03/22 History release multivitamin 1 tab PO DAILY 05/03/22 05/03/22 History Patient History Medical History (Updated 05/03/22 @ 18:02 by Mendoza Gregory MD) Tobacco use disorder Ventral hernia Surgical History (Updated 05/03/22 @ 17:33 by Sheila Jose PA-C) History of tonsillectomy Family History (Updated 05/03/22 @ 17:33 by Sheila Jose PA-C) Father Colorectal cancer Social History Smoking Status: Current every day smoker Feels Safe at Home: Yes Physical Exam Physical Exam: Left arm exam: Extensive cellulitis with redness and warmth extending from the axilla along the medial arm and then circumferentially around the elbow moving all the way distally to the mid forearm. There is extensive swelling in these regions without definitive areas of fluctuance. There is some abnormal skin located over the tip of the olecranon however there is no active drainage currently. His elbow range of motion is restricted to an arc of 30 degrees up to 100 degrees. He has a wedding band on his left ring finger which has not been removed for several years. No significant swelling in the hand. Sensory intact light touch median ulnar and radial nerve distributions. Fingers are warm and well-perfused. Results & Data ([facility]) Vital Signs (Past 12 Hours) Vital Signs Temp Pulse Pulse Resp BP BP Pulse Ox 05/03/22 16:18 108 H 22 154/96 H 99 05/03/22 14:29 98 05/03/22 14:29 98 05/03/22 14:22 36.5 C 106 H 20 192/73 H 98 O2 Del Method 05/03/22 16:18 05/03/22 14:29 05/03/22 14:29 05/03/22 14:22 Room Air Laboratory Results Laboratory Results - last 48 hr 05/03/22 05/03/22 05/03/22 15:09 15:09 15:09 WBC 19.98 H RBC 4.45 L Hgb 14.6 POC Hgb Hct 41.5 L POC Hct MCV 93.3 MCH 32.8 MCHC 35.2 RDW Std Deviation 45.3 RDW Coeff of Cinthia 13.2 Plt Count 121 L MPV 10.7 Immature Gran % (Auto) 0.4 Neut % (Auto) 94.3 Lymph % (Auto) 1.8 [place] % (Auto) 2.2 Eos % (Auto) 0.5 Baso % (Auto) 0.8 Neut # (Auto) 18.88 H Lymph # (Auto) 0.35 L [place] # (Auto) 0.43 Eos # (Auto) 0.10 Baso # (Auto) 0.15 Immature Gran # (Auto) 0.07 Toxic Granulation 1+ Dohle Bodies Occasional PT 10.9 INR 1.0 APTT 32.8 H PTT Ratio 1.2 POC Sodium Sodium 129 L POC Potassium Potassium 3.3 L POC Chloride Chloride 94 L Carbon Dioxide 25 POC Total CO2 Anion Gap 10 POC Anion Gap POC BUN BUN 29 H Creatinine 1.24 POC Creatinine Est Cr Clr Drug Dosing 67.8 Est GFR ( Amer) 73.3 Est GFR (Non-Af Amer) 63.2 BUN/Creatinine Ratio 23.4 H Glucose 162 H POC Glucose (other) Lactate Calcium 8.9 POC Ioniz Calcium Cris Magnesium 2.1 Total Bilirubin 0.6 AST 37 ALT 49 Alkaline Phosphatase 83 Total Protein 7.1 Albumin 3.5 Globulin 3.6 Albumin/Globulin Ratio 1.0 Procalcitonin SARS-CoV-2, RNA, NAAT 05/03/22 05/03/22 05/03/22 15:09 15:09 15:36 WBC RBC Hgb POC Hgb 16.0 Hct POC Hct 47 MCV MCH MCHC RDW Std Deviation RDW Coeff of Cinthia Plt Count MPV Immature Gran % (Auto) Neut % (Auto) Lymph % (Auto) [place] % (Auto) Eos % (Auto) Baso % (Auto) Neut # (Auto) Lymph # (Auto) [place] # (Auto) Eos # (Auto) Baso # (Auto) Immature Gran # (Auto) Toxic Granulation Dohle Bodies PT INR APTT PTT Ratio POC Sodium 130 L Sodium POC Potassium 3.4 Potassium POC Chloride 94 L Chloride Carbon Dioxide POC Total CO2 27 Anion Gap POC Anion Gap 13.0 L POC BUN 27 H BUN Creatinine POC Creatinine 1.3 Est Cr Clr Drug Dosing Est GFR ( Amer) Est GFR (Non-Af Amer) BUN/Creatinine Ratio Glucose POC Glucose (other) 141 H Lactate 2.7 H* Calcium POC Ioniz Calcium Cris 1.13 Magnesium Total Bilirubin AST ALT Alkaline Phosphatase Total Protein Albumin Globulin Albumin/Globulin Ratio Procalcitonin 1.79 H SARS-CoV-2, RNA, NAAT 05/03/22 05/03/22 15:43 17:12 WBC RBC Hgb POC Hgb Hct POC Hct MCV MCH MCHC RDW Std Deviation RDW Coeff of Cinthia Plt Count MPV Immature Gran % (Auto) Neut % (Auto) Lymph % (Auto) [place] % (Auto) Eos % (Auto) Baso % (Auto) Neut # (Auto) Lymph # (Auto) [place] # (Auto) Eos # (Auto) Baso # (Auto) Immature Gran # (Auto) Toxic Granulation Dohle Bodies PT INR APTT PTT Ratio POC Sodium Sodium POC Potassium Potassium POC Chloride Chloride Carbon Dioxide POC Total CO2 Anion Gap POC Anion Gap POC BUN BUN Creatinine POC Creatinine Est Cr Clr Drug Dosing Est GFR ( Amer) Est GFR (Non-Af Amer) BUN/Creatinine Ratio Glucose POC Glucose (other) Lactate 1.6 Calcium POC Ioniz Calcium Cris Magnesium Total Bilirubin AST ALT Alkaline Phosphatase Total Protein Albumin Globulin Albumin/Globulin Ratio Procalcitonin SARS-CoV-2, RNA, NAAT NEGATIVE Diagnostic Findings Forearm CT 05/03/22 14:42 CT SCAN OF THE LEFT HUMERUS WITH IV CONTRAST; CT SCAN OF THE LEFT FOREARM WITH IV CONTRAST. CLINICAL HISTORY: Elbow swelling and infection. COMPARISON STUDY: No priors. TECHNIQUE: CT scan of the left humerus is performed from the shoulder to the elbow, and CT scan of the left forearm is performed from the elbow to the wrist following the IV administration of 90 cc of Optiray 350. Images for both examinations are reviewed in the axial, sagittal, and coronal planes. IV contrast was administered without complication. A dose lowering technique was utilized adhering to the principles of ALARA. The examination is degraded by st reak artifact from the arm abutting the CT gantry. Note that interpretation is significantly suboptimal without plain film correlate. CT DOSE: 1158.47 mGy.cm FINDINGS: The skeletal structures are well mineralized for age. There is no evidence of fracture involving the left humerus, the left radius, or the left ulna. There is no bony erosion or periostitis. The shoulder, elbow, and wrist joints are grossly maintained. There is diffuse superficial and deep soft tissue edema and fluid identified throughout the left upper extremity. This tracks along the myofascial planes. Edema extends from the proximal humerus to the wrist, and is greatest around the left elbow. A small bursal fluid collection posterior to the olecranon process measures approximately 3 x 1 cm. No soft tissue gas is seen within the left upper extremity. The upper extremity musculature is markedly heterogeneous. Question a fluid collection within the extensor compartment of the forearm on axial image #47 measuring approximately 2.5 x 1 cm. The regional vessels appear patent. Prominent left axillary lymph nodes measure up to 2.1 cm in length and are likely reactive. IMPRESSION: 1. The examination is significantly degraded by streak artifact. 2. No bony abnormality seen involving the left humerus or forearm. 3. Superficial and deep soft tissue edema is present throughout the left upper extremity as above. Correlate clinically for evidence of cellulitis/infection. No soft tissue gas is identified. 4. There is marked heterogeneity throughout the left upper extremity musculature consistent with a nonspecific myositis. This may be infectious. Rhabdomyolysis could also potentially have this appearance and clinical correlation will be essential. 5. There is a small olecranon bursal fluid collection. The sterility of this fluid cannot be assessed by imaging. 6. Question an additional small low-attenuation collection within the proximal extensor compartment of the forearm. Again, the sterility of this fluid cannot be assessed by imaging. ACT 112: Negative or not required by law. Electronically signed by: Jorge Mccabe M.D. 05/03/2022 4:[address] 05/03/22 14:42 CT SCAN OF THE LEFT HUMERUS WITH IV CONTRAST; CT SCAN OF THE LEFT FOREARM WITH IV CONTRAST. CLINICAL HISTORY: Elbow swelling and infection. COMPARISON STUDY: No priors. TECHNIQUE: CT scan of the left humerus is performed from the shoulder to the elbow, and CT scan of the left forearm is performed from the elbow to the wrist following the IV administration of 90 cc of Optiray 350. Images for both examinations are reviewed in the axial, sagittal, and coronal planes. IV contrast was administered without complication. A dose lowering technique was utilized adhering to the principles of ALARA. The examination is degraded by streak artifact from the arm abutting the CT gantry. Note that interpretation is significantly suboptimal without plain film correlate. CT DOSE: 1158.47 mGy.cm FINDINGS: The skeletal structures are well mineralized for age. There is no evidence of fracture involving the left humerus, the left radius, or the left ulna. There is no bony erosion or periostitis. The shoulder, elbow, and wrist joints are grossly maintained. There is diffuse superficial and deep soft tissue edema and fluid identified throughout the left upper extremity. This tracks along the myofascial planes. Edema extends from the proximal humerus to the wrist, and is greatest around the left elbow. A small bursal fluid collection posterior to the olecranon process measures approximately 3 x 1 cm. No soft tissue gas is seen within the left upper extremity. The upper extremity musculature is markedly heterogeneous. Question a fluid collection within the extensor compartment of the forearm on axial image #47 measuring approximately 2.5 x 1 cm. The regional vessels appear patent. Prominent left axillary lymph nodes measure up to 2.1 cm in length and are likely reactive.
[2022-05-03] MEDS ORDERED: HYDROmorphone INJ 0.5 MG/0.5 ML SYR IV STA (19:00)
[2022-05-03] MEDS ORDERED: PIPERACILLIN/TAZOBACTAM 4.5 GM (over 30 mins) IV ONE (20:30)
--- NOTE | 2022-05-03 20:42 | Pharmacy Report ---
Pharmacy PK ABX Note - Date of Service May 03, 2022 - Assessment and Plan Assessment 57 year old M receiving IV VANCOMYCIN + ZOSYN + CLINDAMYCIN for treatment of upper left arm cellulitis with necrotizing appearance. BCs pending Afebrile WBC 19.9 Plan Vancomycin * Loading dose: 1750 mg IV x 1 * Maintenance dose: 750 mg IV every 12 hours * Regimen is predicted to achieve target AUC/SEBASTIAN of 400-600 mg/L.hr * Level to be ordered at steady state Pharmacy has transitioned to AUC monitoring for vancomycin. AUC/SEBASTIAN is the preferred PK/PD target and is associated with decreased risk of nephrotoxicity compared to traditional trough targets. Clindamycin 900mg IV Q8H Zosyn 4.5g IV Q8H extended interval infusion for CrCl > 20ml/min Pharmacy will continue to follow and will adjust dose/frequency as necessary. Thank you.
[2022-05-03] MEDS ORDERED: HYDROmorphone INJ 0.5 MG/0.5 ML SYR IV PRN (21:45)
[2022-05-03] MEDS: ACETAMINOPHEN 500 MG TAB PO SCH (21:52)
[2022-05-03] MEDS: CLINDAMYCIN/D5W 900 MG/50 ML BAG IV SCH (21:53)
[2022-05-03] MEDS: traMADol HCL 50 MG TABLET PO SCH (21:53)
[2022-05-04] MEDS: VANCOMYCIN HCL 750 MG in SODIUM CHLORIDE 0.9% 250 ML IV SCH ×3 (01:25→17:12)
[2022-05-04] MEDS: ACETAMINOPHEN 500 MG TAB PO SCH ×3 (03:16→19:49)
[2022-05-04] MEDS: PIPERACILLIN/TAZOBACTAM 4.5 GM in DEXTROSE 5% 100 ML IV SCH ×3 (03:16→17:12)
[2022-05-04] MEDS: traMADol HCL 50 MG TABLET PO SCH ×3 (03:17→19:49)
[2022-05-04] MEDS: CLINDAMYCIN/D5W 900 MG/50 ML BAG IV SCH ×3 (03:17→19:50)
[2022-05-04 07:07] LABS: Hematocrit (blood only) 35.3 % (42.0-52.0); Hemoglobin 12.5 g/dl (14.0-18.0); Mean Corpuscular Hemoglobin 32.7 pg (25.0-34.0); Mean Corpuscular Hgb Conc 35.4 g/dL (32.0-36.0); Mean Corpuscular Volume 92.4 fL (80.0-100.0); Mean Platelet Volume 10.4 fL (9.4-12.4); Platelet Count 101 K/uL (130-400); RDW Coefficient of Variation 13.4 % (11.5-14.5); RDW Standard Deviation 45.6 fL (36.4-46.3); Red Blood Count 3.82 M/uL (4.70-6.10); White Blood Count 12.46 K/ul (4.8-10.8)
[2022-05-04] MEDS ORDERED: VANCOMYCIN LEVEL ONE (07:30)
[2022-05-04 07:42] LABS: Basophils # (auto) 0.05 K/uL (0-0.2); Basophils % (auto) 0.4 %; Eosinophils # (auto) 0.24 K/uL (0-0.50); Eosinophils % (auto) 1.9 %; Immature Granulocytes # (auto) 0.18 K/uL (0.01-0.20); Immature Granulocytes % (auto) 1.4 %; Lymphocytes # (auto) 0.54 K/uL (1.2-3.4); Lymphocytes % (auto) 4.3 %; Monocytes # (auto) 0.54 K/uL (0.11-0.59); Monocytes % (auto) 4.3 %; Neutrophils # (auto) 10.91 K/uL (1.40-6.50); Neutrophils % (auto) 87.7 %
[2022-05-04 07:44] LABS: BUN Creatinine Ratio 21.9 (10-20); Calcium 8.5 mg/dl (8.5-10.1); Creatinine Clr Calc Pharmacy 85.7 ml/min; Est GFR (African American) 99.9 ml/min; Est GFR (Non-African American) 86.2 ml/min; Potassium 3.5 mmol/L (3.5-5.1)
--- NOTE | 2022-05-04 08:09 | Electrocardiogram Report ---
Test Reason : Blood Pressure : / mmHG Vent. Rate : 103 BPM Atrial Rate : 103 BPM P-R Int : 126 ms QRS Dur : 090 ms QT Int : 326 ms P-R-T Axes : 053 026 057 degrees QTc Int : 427 ms Sinus tachycardia with Premature atrial complexes Otherwise normal ECG No previous ECGs available Confirmed by Percy Smith ([id number]) on 05/04/2022 8:08:58 AM Referred By: Confirmed By:Percy Smith
[2022-05-04] MEDS ORDERED: cefTRIAXone SODIUM 2,000 MG in DEXTROSE 5% 50 ML IV SCH (09:00)
--- NOTE | 2022-05-04 09:34 | Orthopedic Progress Note ---
Date of Service May 04, 2022 Assessment & Plan (1) Abscess of left arm: Plan: N.p.o. after midnight tonight Plan is for irrigation and debridement of left elbow with Dr. Collado off tomorrow. Pain control with p.o. medication Continue IV antibiotics per medicine service Patient may possibly need evaluation by infectious disease and possible placement of a PICC line We will continue to follow while he is inpatient. We will plan on having him follow-up in our office at the 2-week postoperative interval. Plan Left arm cellulitis Admission and Anticipated Discharge Date Admission Date: May 03, 2022 Subjective This 57-year-old male was seen this morning for follow-up of left elbow cellulitis with possible abscess over the olecranon. Patient states that he is headache has resolved. States the pain is well controlled with p.o. pain medication. States the swelling seems to have subsided slightly as well. He denies any numbness or tingling in his left upper extremity. Advised him that the plan going forward is to do an irrigation debridement sometime tomorrow and that he should be n.p.o. after midnight tonight. Patient states that he had a lot of sweating last night but denies fever, chills, chest pain, shortness of breath, nausea, vomiting, diarrhea or difficulty voiding. Review of Systems Review of Systems: All systems reviewed & are unremarkable except as noted in Subjective Physical Exam Physical Exam: Left elbow: Patient has edema and erythema extending from the mid forearm to the mid upper arm circumferentially. There is fluctuance palpated over the olecranon. Range of motion is limited to 90 degrees of flexion and about 25 degrees short of terminal extension. Patient does have fairly full range of motion of his wrist but has swelling tracking down to his fingers. He states that his arm feels okay as long as it is propped up on a pillow. There are no open skin areas or drainage appreciated. Patient is neurovascular intact in left upper extremity. Results & Data ([facility]) Vital Signs (Past 12 Hours) Vital Signs Temp Pulse Pulse Resp BP Pulse Ox O2 Del Method 05/04/22 07:00 37.3 C 109 H 18 142/63 H 97 Room Air 05/03/22 22:52 106 H 05/03/22 22:52 37.5 C 104 H 18 115/68 93 Room Air 05/03/22 22:39 Room Air 05/03/22 22:20 36.9 C 106 H 18 167/69 H 95 Room Air 05/03/22 21:45 36.9 C 106 H 18 167/69 H 95 Room Air Diagnostic Findings Laboratory Results WBC 12.46 K/ul (4.8-10.8) H 05/04/22 06:37 RBC 3.82 M/uL (4.70-6.10) L 05/04/22 06:37 Hgb 12.5 g/dl (14.0-18.0) L 05/04/22 06:37 POC Hgb 16.0 g/dl (14.0-18.0) 05/03/22 15:36 Hct 35.3 % (42.0-52.0) L 05/04/22 06:37 POC Hct 47 % (42-52) 05/03/22 15:36 MCV 92.4 fL (80.0-100.0) 05/04/22 06:37 MCH 32.7 pg (25.0-34.0) 05/04/22 06:37 MCHC 35.4 g/dL (32.0-36.0) 05/04/22 06:37 RDW Std Deviation 45.6 fL (36.4-46.3) 05/04/22 06:37 RDW Coeff of Cinthia 13.4 % (11.5-14.5) 05/04/22 06:37 Plt Count 101 K/uL (130-400) L 05/04/22 06:37 MPV 10.4 fL (9.4-12.4) 05/04/22 06:37 Immature Gran % (Auto) 1.4 % 05/04/22 06:37 Neut % (Auto) 87.7 % 05/04/22 06:37 Lymph % (Auto) 4.3 % 05/04/22 06:37 [place] % (Auto) 4.3 % 05/04/22 06:37 Eos % (Auto) 1.9 % 05/04/22 06:37 Baso % (Auto) 0.4 % 05/04/22 06:37 Neut # (Auto) 10.91 K/uL (1.40-6.50) H 05/04/22 06:37 Lymph # (Auto) 0.54 K/uL (1.2-3.4) L 05/04/22 06:37 [place] # (Auto) 0.54 K/uL (0.11-0.59) 05/04/22 06:37 Eos # (Auto) 0.24 K/uL (0-0.50) 05/04/22 06:37 Baso # (Auto) 0.05 K/uL (0-0.2) 05/04/22 06:37 Immature Gran # (Auto) 0.18 K/uL (0.01-0.20) 05/04/22 06:37 Toxic Granulation 1+ 05/03/22 15:09 Dohle Bodies Occasional 05/03/22 15:09 PT 10.9 Seconds (9.0-12.0) 05/03/22 15:09 INR 1.0 (0.9-1.1) 05/03/22 15:09 APTT 32.8 Seconds (21.0-31.0) H 05/03/22 15:09 PTT Ratio 1.2 05/03/22 15:09 POC Sodium 130 mmol/L (135-144) L 05/03/22 15:36 Sodium 130 mmol/L (136-145) L 05/04/22 06:37 POC Potassium 3.4 mmol/L (3.3-5.0) 05/03/22 15:36 Potassium 3.5 mmol/L (3.5-5.1) 05/04/22 06:37 POC Chloride 94 mmol/L (101-112) L 05/03/22 15:36 Chloride 99 mmol/L (98-107) 05/04/22 06:37 Carbon Dioxide 26 mmol/L (21-32) 05/04/22 06:37 POC Total CO2 27 mmol/L (24-31) 05/03/22 15:36 Anion Gap 5 (3-11) 05/04/22 06:37 POC Anion Gap 13.0 mmol/L (16-25) L 05/03/22 15:36 POC BUN 27 mg/dl (7-18) H 05/03/22 15:36 BUN 21 mg/dl (6-23) 05/04/22 06:37 Creatinine 0.96 mg/dl (0.6-1.4) 05/04/22 06:37 POC Creatinine 1.3 mg/dl (0.6-1.3) 05/03/22 15:36 Est Cr Clr Drug Dosing 85.7 ml/min 05/04/22 06:37 Est GFR ( Amer) 99.9 ml/min 05/04/22 06:37 Est GFR (Non-Af Amer) 86.2 ml/min 05/04/22 06:37 BUN/Creatinine Ratio 21.9 (10-20) H 05/04/22 06:37 Glucose 113 mg/dl (70-99(Fasting)) H 05/04/22 06:37 POC Glucose (other) 141 mg/dl (70-99) H 05/03/22 15:36 Lactate 1.6 mmol/L (0.4-2.0) 05/03/22 17:12 Calcium 8.5 mg/dl (8.5-10.1) 05/04/22 06:37 POC Ioniz Calcium Cris 1.13 mmol/l (1.12-1.32) 05/03/22 15:36 Magnesium 2.1 mg/dl (1.7-2.4) 05/03/22 15:09 Total Bilirubin 0.6 mg/dl (0.2-1.0) 05/03/22 15:09 AST 37 U/L (13-39) 05/03/22 15:09 ALT 49 U/L (7-52) 05/03/22 15:09 Alkaline Phosphatase 83 U/L (34-104) 05/03/22 15:09 Total Protein 7.1 gm/dl (6.0-8.3) 05/03/22 15:09 Albumin 3.5 gm/dl (3.4-5.0) 05/03/22 15:09 Globulin 3.6 gm/dl (2.5-4.0) 05/03/22 15:09 Albumin/Globulin Ratio 1.0 (0.9-2) 05/03/22 15:09 Procalcitonin 1.79 ng/ml (0-0.5) H 05/03/22 15:09 SARS-CoV-2, RNA, NAAT NEGATIVE (NEGATIVE) 05/03/22 15:[address] 05/03/22 14:42 CT SCAN OF THE LEFT HUMERUS WITH IV CONTRAST; CT SCAN OF THE LEFT FOREARM WITH IV CONTRAST. CLINICAL HISTORY: Elbow swelling and infection. COMPARISON STUDY: No priors. TECHNIQUE: CT scan of the left humerus is performed from the shoulder to the elbow, and CT scan of the left forearm is performed from the elbow to the wrist following the IV administration of 90 cc of Optiray 350. Images for both examinations are reviewed in the axial, sagittal, and coronal planes. IV contrast was administered without complication. A dose lowering technique was utilized adhering to the principles of ALARA. The examination is degraded by streak artifact from the arm abutting the CT gantry. Note that interpretation is significantly suboptimal without plain film correlate. CT DOSE: 1158.47 mGy.cm FINDINGS: The skeletal structures are well mineralized for age. There is no evidence of fracture involving the left humerus, the left radius, or the left ulna. There is no bony erosion or periostitis. The shoulder, elbow, and wrist joints are grossly maintained. There is diffuse superficial and deep soft tissue edema and fluid identified throughout the left upper extremity. This tracks along the myofascial planes. Edema extends from the proximal humerus to the wrist, and is greatest around the left elbow. A small bursal fluid collection posterior to the olecranon process measures approximately 3 x 1 cm. No soft tissue gas is seen within the left upper extremity. The upper extremity musc ulature is markedly heterogeneous. Question a fluid collection within the extensor compartment of the forearm on axial image #47 measuring approximately 2.5 x 1 cm. The regional vessels appear patent. Prominent left axillary lymph nodes measure up to 2.1 cm in length and are likely reactive. IMPRESSION: 1. The examination is significantly degraded by streak artifact. 2. No bony abnormality seen involving the left humerus or forearm. 3. Superficial and deep soft tissue edema is present throughout the left upper extremity as above. Correlate clinically for evidence of cellulitis/infection. No soft tissue gas is identified. 4. There is marked heterogeneity throughout the left upper extremity musculature consistent with a nonspecific myositis. This may be infectious. Rhabdomyolysis c ould also potentially have this appearance and clinical correlation will be essential. 5. There is a small olecranon bursal fluid collection. The sterility of this fluid cannot be assessed by imaging. 6. Question an additional small low-attenuation collection within the proximal extensor compartment of the forearm. Again, the sterility of this fluid cannot be assessed by imaging. ACT 112: Negative or not required by law. Electronically signed by: Jorge Mccabe M.D. 05/03/2022 4:[address] 05/03/22 14:42 CT SCAN OF THE LEFT HUMERUS WITH IV CONTRAST; CT SCAN OF THE LEFT FOREARM WITH IV CONTRAST. CLINICAL HISTORY: Elbow swelling and infection. COMPARISON STUDY: No priors. TECHNIQUE: CT scan of the left humerus is performed from the shoulder to the elbow, and CT scan of the left forearm is performed from the elbow to the wrist following the IV administration of 90 cc of Optiray 350. Images for both examinations are reviewed in the axial, sagittal, and coronal planes. IV contrast was administered without complication. A dose lowering technique was utilized adhering to the principles of ALARA. The examination is degraded by streak artifact from the arm abutting the CT gantry. Note that interpretation is significantly suboptimal without plain film correlate. CT DOSE: 1158.47 mGy.cm FINDINGS: The skeletal structures are well mineralized for age. There is no evidence of fracture involving the left humerus, the left radius, or the left ulna. There is no bony erosion or periostitis. The shoulder, elbow, and wrist joints are grossly maintained. There is diffuse superficial and deep soft tissue edema and fluid identified throughout the left upper extremity. This tracks along the myofascial planes. Edema extends from the proximal humerus to the wrist, and is greatest around the left elbow. A small bursal fluid collection posterior to the olecranon process measures approximately 3 x 1 cm. No soft tissue gas is seen within the left upper extremity. The upper extremity musculature is markedly heterogeneous. Question a fluid collection within the extensor compartment of the forearm on axial image #47 measuring approximately 2.5 x 1 cm. The regional vessels appear patent. Prominent left axillary lymph nodes measure up to 2.1 cm in length and are likely reactive. IMPRESSION: 1. The examination is significantly degraded by streak artifact. 2. No bony abnormality seen involving the left humerus or forearm. 3. Superficial and deep soft tissue edema is present throughout the left upper extremity as above. Correlate clinically for evidence of cellulitis/infection. No soft tissue gas is identified. 4. There is marked heterogeneity throughout the left upper extremity musculature consistent with a nonspecific myositis. This may be infectious. Rhabdomyolysis could also potentially have this appearance and clinical correlation will be essential. 5. There is a small olecranon bursal fluid collection. The sterility of this fluid cannot be assessed by imaging. 6. Question an additional small low-attenuation collection within the proximal extensor compartment of the forearm. Again, the sterility of this fluid cannot be assessed by imaging. ACT 112: Negative or not required by law. Electronically signed by: Jorge Mccabe M.D. 05/03/2022 4:40 PM
--- NOTE | 2022-05-04 14:43 | Hospitalist Progress Note ---
Date of Service May 04, 2022 Assessment & Plan (1) Cellulitis of left arm: (2) Abscess of left arm: Plan 57-year-old male with PMH of ventral hernia and tobacco abuse presented to the ED 05/03 from his PCP office with progressive redness/swelling and pain in the left elbow and upper extremity. He is being managed for the following: Severe sepsis POA: Tachycardia, leukocytosis and elevated lactate level on the background of left upper extremity cellulitis with presumed abscess. Left upper extremity cellulitis/abscess At presentation, patient tachycardic and had leukocytosis. Patient was sent from PCP office (see above). Admitting CT of left humerus and left forearm: 1. The examination is significantly degraded by streak artifact. 2. No bony abnormality seen involving the left humerus or forearm. 3. Superficial and deep soft tissue edema is present throughout the left upper extremity as above. Correlate clinically for evidence of cellulitis/infection. No soft tissue gas is identified. 4. There is marked heterogeneity throughout the left upper extremity musculature consistent with a nonspecific myositis. This may be infectious. Rhabdomyolysis could also potentially have this appearance and clinical correlation will be essential. 5. There is a small olecranon bursal fluid collection. The sterility of this fluid cannot be assessed by imaging. 6. Question an additional small low-attenuation collection within the proximal extensor compartment of the forearm. Again, the sterility of this fluid cannot be assessed by imaging. 05/03 admitting blood culture: Pending WBC trending down, lactate WNL, on room air, afebrile Continue clindamycin 2/, Zosyn 2/, vancomycin 2/. Orthopedic on board, n.p.o. midnight, for surgical eval tomorrow. We will consult ID DVT prophylaxis: SCDs, for irrigation and debridement tomorrow. Full code Admission and Anticipated Discharge Date Admission Date: May 03, 2022 Subjective Patient seen and examined at bedside as a follow-up of severe sepsis POA and cellulitis/abscess of left arm. Patient was sitting up in bed, on room air, NAD, reports no new acute event overnight, reports improving headache, reports improving left upper extremity pain, reports feeling better. Patient reports eating okay, had poor appetite for few days prior to arrival, last bowel movement on Tuesday. Patient denies any sore throat or chest pain or cough or other review of symptoms. Physical Exam Physical Exam: GENERAL: Alert and oriented x3. NAD, on RA. HEENT: No pallor, no icterus. Pupils equal, round and reactive to light. Oral mucosa moist. NECK: No JVD, no neck masses. HEART: S1 and S2 heard. Regular rate and rhythm. No murmur, no gallop. RESPIRATORY SYSTEM: Normal AP diameter. No accessory muscle use. No wheezing, no crackles. ABDOMEN: Soft, bowel sounds present, nontender, no distention. CENTRAL NERVOUS SYSTEM: No facial droop. Speech is clear. Obeys simple co mmands. Moves extremities. EXTREMITIES: No ble edema, no erythema seen. LUE: arm and forearm swelling w/ erythema and warmth; tenderness improving per pt. Results & Data Results & Data ([facility]) Vital Signs (Past 12 Hours) Vital Signs Temp Pulse Resp BP Pulse Ox O2 Del Method 05/04/22 11:00 36.5 C 100 H 16 128/74 Room Air 05/04/22 09:57 Room Air 05/04/22 07:00 37.3 C 109 H 18 142/63 H 97 Room Air
--- NOTE | 2022-05-04 16:35 | Anesthesiology Consultation ---
Date of Service May 04, 2022 Assessment & Plan Chart Review Chart Review: Acceptable Risk for Surgery and Patient NOT seen in Pre Admission Testing Consults Requested none ASA ASA2 Proposed Anesthesia Anesthesia Type: General History Surgery Operation Date: 05/05/22 11:10 Proposed Procedures p Left Elbow Incision and Drainage - Mendoza Gregory MD Height/Weight Height: 5 ft 6 in Weight: 87.1 kg Allergies Allergy/AdvReac Type Severity Reaction Status Date / Time No Known Allergies Allergy Unverified 05/03/22 17:23 Medications Home Medications Medication Instructions Recorded Confirmed Last Taken aspirin 81 mg tablet,delayed 81 mg PO DAILY 05/03/22 05/03/22 Unknown release multivitamin 1 tab PO DAILY 05/03/22 05/03/22 Unknown Active Medications Generic Name Dose Route Start Last Admin Trade Name Cadenq PRN Reason Stop Dose Admin Acetaminophen 1,000 mg 05/03/22 20:00 05/04/22 11:33 Acetaminophen 500 Mg Tab PO 06/02/22 19:59 1,000 mg Q8H ELEUTERIO Administration Clindamycin Phosphate 900 mg in 50 mls @ 100 mls/hr 05/03/22 21:00 05/04/22 13:03 Cleocin/D5w IV 05/10/22 20:59 Infused Q8H ELEUTERIO Infusion Piperacillin Sod/Tazobactam 120 mls @ 30 mls/hr 05/04/22 01:00 05/04/22 12:17 Sod 4.5 gm/ Dextrose IV 05/10/22 12:59 Infused Q8H ELEUTERIO Infusion Protocol Tramadol HCl 50 mg 05/03/22 20:00 05/04/22 11:33 Tramadol Hcl 50 Mg Tablet PO 06/02/22 19:59 50 mg Q8H ELEUTERIO Administration Past Medical History Medical History Tobacco use disorder Ventral hernia Exercise / Class Metabolic Activity II 4-5 Yardwork/Stairs/Walk up hill Past Family History Family History Father Colorectal cancer Past Surgical History Surgical History History of tonsillectomy Past Anesthesia History No Hx of Anesthesia Complications and No Family Hx of Anesthesia Complications History of PONV No Hx of PONV and No Hx of Motion Sickness Social History Smoking Status: Current every day smoker tobacco type: cigarettes Smoking cigarettes per day: 1 ppd Hx Alcohol Use: Yes Alcohol type: beer alcohol intake frequency: 3 or more drinks per day Alcohol Intake Frequency Comment: Patient states that he drinkes a 30 pack a week, "drinks every other day" Hx Substance Use: No substance use type: does not use Physical Exam Vital Signs Last Vital Signs Temp 36.7 C 05/04/22 15:00 Pulse 86 05/04/22 15:00 Resp 16 05/04/22 15:00 BP 101/62 05/04/22 15:00 Pulse Ox 96 05/04/22 15:00 O2 Del Method 05/04/22 15:00 O2 Flow Rate 2 05/04/22 15:00 Testing Laboratory Results 05/04/22 06:37 05/04/22 06:37 PT 10.9 Seconds (9.0-12.0) 05/03/22 15:09 INR 1.0 (0.9-1.1) 05/03/22 15:09 APTT 32.8 Seconds (21.0-31.0) H 05/03/22 15:09 05/03/22 15:30 Aerobic Blood Culture - Preliminary Blood No growth in Aerobic bottle after 24 hours. Anaerobic Blood Culture - Preliminary No growth in Anaerobic bottle after 24 hours. 05/03/22 15:09 Aerobic Blood Culture - Preliminary Blood No growth in Aerobic bottle after 24 hours. Anaerobic Blood Culture - Preliminary No growth in Anaerobic bottle after 24 hours. Electrocardiogram Date: 05/03/22 Findings: + ST @ (@ 103 w/PAC's)
[2022-05-05] MEDS: VANCOMYCIN HCL 750 MG in SODIUM CHLORIDE 0.9% 250 ML IV SCH (00:24)
[2022-05-05] MEDS: PIPERACILLIN/TAZOBACTAM 4.5 GM in DEXTROSE 5% 100 ML IV SCH ×3 (00:27→17:45)
[2022-05-05] MEDS: oxyCODONE HCL IR 5 MG TAB (IMMEDIATE RELEASE) PO PRN ×2 (00:27→08:19)
[2022-05-05] MEDS: traMADol HCL 50 MG TABLET PO SCH ×3 (04:45→19:41)
[2022-05-05] MEDS: ACETAMINOPHEN 500 MG TAB PO SCH ×3 (04:45→19:41)
[2022-05-05] MEDS: CLINDAMYCIN/D5W 900 MG/50 ML BAG IV SCH ×3 (04:48→19:42)
[2022-05-05 06:28] LABS: BUN Creatinine Ratio 19.7 (10-20); Est GFR (African American) 115.7 ml/min; Est GFR (Non-African American) 99.9 ml/min; Magnesium 2.2 mg/dl (1.7-2.4); Phosphorus 2.6 mg/dl (2.5-4.9); Potassium 3.4 mmol/L (3.5-5.1)
[2022-05-05 06:42] LABS: Hematocrit (blood only) 34.6 % (42.0-52.0); Hemoglobin 12.3 g/dl (14.0-18.0); Mean Corpuscular Hemoglobin 32.7 pg (25.0-34.0); Mean Corpuscular Hgb Conc 35.5 g/dL (32.0-36.0); Mean Platelet Volume 10.7 fL (9.4-12.4); Platelet Count 123 K/uL (130-400); RDW Coefficient of Variation 13.5 % (11.5-14.5); RDW Standard Deviation 45.6 fL (36.4-46.3); Red Blood Count 3.76 M/uL (4.70-6.10); White Blood Count 12.21 K/ul (4.8-10.8)
[2022-05-05 06:43] LABS: Basophils # (auto) 0.05 K/uL (0-0.2); Basophils % (auto) 0.4 %; Eosinophils # (auto) 0.37 K/uL (0-0.50); Immature Granulocytes # (auto) 0.35 K/uL (0.01-0.20); Immature Granulocytes % (auto) 2.9 %; Lymphocytes % (auto) 5.7 %; Monocytes # (auto) 0.79 K/uL (0.11-0.59); Monocytes % (auto) 6.5 %; Neutrophils # (auto) 9.95 K/uL (1.40-6.50); Neutrophils % (auto) 81.5 %; Toxic Granulation 1+
[2022-05-05] MEDS ORDERED: VANCOMYCIN LEVEL ONE (07:30)
[2022-05-05] MEDS: VANCOMYCIN HCL 1,250 MG in SODIUM CHLORIDE 0.9% 250 ML IV SCH ×2 (08:18→16:11)
--- NOTE | 2022-05-05 08:53 | Orthopedic Progress Note ---
Date of Service May 05, 2022 Assessment & Plan (1) Abscess of left arm: Plan: Proceed to operating room today for irrigation and debridement. Will obtain deep cultures. Readmit to hospital after surgery. Continue IV antibiotics Recommend Infectious disease consult Continue to elevate L arm After surgery, will be allowed elbow ROM 0-90. (2) Cellulitis of left arm: Admission and Anticipated Discharge Date Admission Date: May 03, 2022 Subjective Patient reports his arm is feeling a little better today, but still hurts to move his elbow as he does not have a full range of motion. He has been elevating his arm. No fevers/chills. Physical Exam Physical Exam: Left arm exam: Redness and warmth extending from the axilla along the medial arm and then circumferentially around the elbow moving all the way distally to the mid forearm has regressed inside the marked area on his skin by about 2 cm on average. The arm remains swollen, but less so than it was Tuesday. There is some abnormal skin located over the tip of the olecranon with no active drainage but discoloration concerning for underlying abscess. His elbow range of motion is restricted to an arc of 25 degrees up to 105 degrees. His wedding band has been removed. No significant swelling in the hand. Sensory intact light touch median ulnar and radial nerve distributions. Fingers are warm and well-perfused. Results & Data ([facility]) Vital Signs (Past 12 Hours) Vital Signs Temp Pulse Pulse Resp BP Pulse Ox O2 Del Method 05/05/22 07:39 36.6 C 75 18 109/69 95 Room Air 05/05/22 03:00 36.7 C 80 18 123/69 99 Room Air 05/04/22 23:00 89 05/04/22 21:45 05/04/22 22:44 36.6 C 89 18 111/68 94 Room Air O2 Del Method 05/05/22 07:39 05/05/22 03:00 05/04/22 23:00 05/04/22 21:45 Room Air 05/04/22 22:44
[2022-05-05] MEDS ORDERED: POTASSIUM CHLORIDE CRTAB 20 MEQ TABCR PO STA (08:55)
[2022-05-05] MEDS ORDERED: MIDAZOLAM HCL 1 MG/ML 2ML VIAL ONE (10:03)
[2022-05-05] MEDS ORDERED: fentaNYL citrate 100 MCG/2 ML VIAL ONE ×2 (10:03→12:17)
[2022-05-05] MEDS ORDERED: DEXAMETHASONE SOD INJ 4 MG/ML VIAL ONE (10:03)
[2022-05-05] MEDS ORDERED: PROPOFOL IV EMULSION 10 MG/ML 20 ML VIAL IV ONE (10:03)
[2022-05-05] MEDS ORDERED: ONDANSETRON INJ 2 MG/ML 2 ML VIAL ONE (10:03)
[2022-05-05] MEDS ORDERED: HYDROmorphone INJ 2 MG/ML SYR/VIAL IV PRN (10:59)
[2022-05-05] MEDS ORDERED: fentaNYL citrate 100 MCG/2 ML VIAL IV PRN (10:59)
[2022-05-05] MEDS ORDERED: ATROPINE SULFATE 0.1 MG/ML 10ML SYR IV PRN (10:59)
[2022-05-05] MEDS ORDERED: ePHEDrine sulfate 50 MG/ML AMP IV PRN (10:59)
[2022-05-05] MEDS ORDERED: ONDANSETRON INJ 2 MG/ML 2 ML VIAL IV PRN (10:59)
[2022-05-05] MEDS ORDERED: BUPIVACAINE/EPINEPHRINE 0.5% MPF 1:200,000 30 ML VIAL ONE (11:48)
[2022-05-05] MEDS ORDERED: ARTIFICIAL TEARS OP OINT 3.5 GM TUBE ONE (13:00)
[2022-05-05] MEDS ORDERED: KETOROLAC 30 MG/ML VIAL ONE (13:00)
--- NOTE | 2022-05-05 13:21 | Operative Report ---
Post Operative Report Pre & Post Diagnosis Operation Date: 05/05/22 11:10 Pre-Op Diagnosis: Abscess left arm Post-Op Diagnosis: Abscess left arm I identified the patient and participated in the time-out.: Yes Procedure Operation Date: 05/05/22 11:10 Actual Procedures p Irrigation and Debridement Left Elbow, Fascia and Abscess(Left) - Mendoza Gregory MD Surgeon [employer] Machine Tender Emy Estimated Blood Loss 100 Findings Consistent with Post-Op Diagnosis Specimens See attending dictation Description of Procedure Patient was taken to the operating room where anesthesia was administered. Patient was prepped and draped in the usual sterile fashion. Please see attending's operative report for specifics of the procedure. I was present for the entire case from initial patient positioning through final wound closure. Assistance was provided in tissue retraction, hemostasis, and final wound closure. Patient was taken to the recovery room in satisfactory condition. I attest to the content of the Intraoperative Record and any orders documented therein. Any exceptions are noted below.
--- NOTE | 2022-05-05 13:40 | Operative Report ---
Post Operative Report Pre & Post Diagnosis Operation Date: 05/05/22 11:10 Pre-Op Diagnosis: Abscess left arm, Septic olecranon bursitis Post-Op Diagnosis: Abscess left arm, Septic olecranon bursitis I identified the patient and participated in the time-out.: Yes Procedure Operation Date: 05/05/22 11:10 Actual Procedures p Irrigation and Debridement Left Arm abscess to Fascia (Left) - Mendoza Gregory MD Surgeon Mendoza Gregory MD Vmware Engineer Emy Estimated Blood Loss 100 Findings Consistent with Post-Op Diagnosis Specimens 3 sets of culture swabs were sent Anesthesia Type General Complications none Disposition Disposition: Recovery Room Indications 57-year-old gentleman presented to the emergency room on Tuesday evening with a 3-day history of worsening left arm pain and redness. His white count was elevated and he had a CT scan which was consistent with 2 abscess cavities in his left arm. These were not clearly delineated however on his exam as he had a fair amount of swelling. He was admitted to the internal medicine service where he was started on broad-spectrum IV antibiotics. This helped with his arm swelling and help to localize the areas of pain redness and fluctuance to the dorsal aspect of the elbow and arm. Surgery was indicated to evacuate the abscess cavities debride any infected appearing material, obtain deep cultures, irrigate out the wound, and place drains in order to eradicate the infection. I had a long discussion with the patient about the risks and benefits of surgery, alternatives, and expected outcomes.. After reviewing all of his options he elected to proceed. All questions were answered. Informed consent was signed. Description of Procedure Patient identified on the floor where his surgical site was marked. He is brought back to the operating room where he was placed in the op room table and general anesthesia was administered. He was carefully moved in the lateral decubitus position on the beanbag. All bony prominences were padded. The beanbag was deflated. Safety strap was placed as well as an axillary roll. Left upper extremity was then prepped and draped in the usual sterile fashion. Prior to incision a multidiscipline timeout was called. All in the room in agreement. We began by palpating the arm for a fluid pocket which was palpable within the olecranon bursa just distal to the tip of the olecranon. The area had a small superficial blister without active drainage. We marked out our incision to curve around the tip of the olecranon and include this area where the skin had previously drained for a total distance of approximately 6 cm. Incision was then made through the skin and subcutaneous tissues. We immediately encountered purulent appearing fluid from the abscess cavity below the skin. Swab culture was sent of this fluid in this cavity. We then used Metzenbaum scissors to develop the abscess cavity which tracked approximately 8 inches distally and 8 inches proximally as well as about 1-1/2 inches medially and laterally from the incision. Purulence was encountered in all these locations and was expressed out of the wound. Culture swabs were taken of both the proximal and distal abscess cavities and also sent for a total of 3 cultures from the wound. We then proceeded to debride any necrotic appearing material as visualized through the wound. This was done with a combination of Metzenbaum scissors and pickups, rongeur, and curette. Once all necrotic and infected appearing tissue was removed we then irrigated out the wound with a total of 6 L of normal saline. The wound was packed and hemostasis of any large bleeders was obtained. There was some residual minor oozing from the proximal and distal abscess cavities. I elected to place a drain. Hemovac drains were placed proximally and distally. A Huntington drain was also placed proximally and distally and exited out through the distal aspect of the wound. The wound was closed with 2-0 Prolene sutures leaving about the distal 1 cm open for the Donya drains. We hooked up the Hemovacs and the proximal tubing was not providing adequate suction so this tubing was removed leaving the distal Hemovac tubing in place. Sterile dressing was then applied. Patient was then carefully rolled supine, extubated, and transferred to recovery room in stable condition. Postoperative course: Patient will be readmitted to the floor. He will continue on empiric IV antibiotics until his culture results become available. We will plan on leaving the surgical dressing in place until Tuesday. On Tuesday morning we will remove the dressing and pull his drains. A new dressing will be applied at that time. He will be allowed range of motion of the elbow from 0 to 90 degrees. No weightbearing through the left upper extremity. Aspirin for DVT prophylaxis. I attest to the content of the Intraoperative Record and any orders documented therein. Any exceptions are noted below.
--- NOTE | 2022-05-05 13:47 | Pharmacy Report ---
Pharmacy PK ABX Note - Date of Service May 05, 2022 - Assessment and Plan Assessment 05/05: Patient to OR for I&D today. Elbow cultures pending. Blood cultures negative at 24 hours. WBC has improved. Random level drawn this morning is lower than predicted- moderate fit on AUC dosing d/t changing renal function. Will increase dose today, random level in AM to help assist dosing. 57 year old M receiving IV VANCOMYCIN + ZOSYN + CLINDAMYCIN for treatment of upper left arm cellulitis with necrotizing appearance. BCs pending Afebrile WBC 19.9 Plan 05/05: * Random level 7.7 mcg/mL, this predicts subtherapeutic dosing * Adjust dose to 1250 mg q8H, this is predicted to achieve AUC/SEBASTIAN 400-600 mg/L.hr * Will get random level in AM to assist with further dosing- may need further dosage increase. Vancomycin * Loading dose: 1750 mg IV x 1 * Maintenance dose: 750 mg IV every 12 hours * Regimen is predicted to achieve target AUC/SEBASTIAN of 400-600 mg/L.hr * Level to be ordered at steady state Pharmacy has transitioned to AUC monitoring for vancomycin. AUC/SEBASTIAN is the preferred PK/PD target and is associated with decreased risk of nephrotoxicity compared to traditional trough targets. Clindamycin 900mg IV Q8H Zosyn 4.5g IV Q8H extended interval infusion for CrCl > 20ml/min Pharmacy will continue to follow and will adjust dose/frequency as necessary. Thank you.
--- NOTE | 2022-05-05 15:10 | Anesthesiology Progress Note ---
Date of Service May 05, 2022 Anesthesia Post Procedure Vital Signs Vital Signs: Temp Pulse Pulse Pulse Resp BP Pulse Ox 05/05/22 15:02 36.7 C 86 18 102/63 91 05/05/22 14:32 87 16 99/74 L 92 05/05/22 14:17 36.6 C 85 16 123/79 94 05/05/22 13:55 36.9 C 90 17 121/81 94 05/05/22 13:45 92 H 17 130/73 97 05/05/22 13:35 98 H 20 141/83 H 100 05/05/22 13:25 37.2 C 107 H 12 131/89 97 05/05/22 10:39 36.6 C 74 20 128/73 99 05/05/22 09:00 73 05/05/22 07:39 36.6 C 75 18 109/69 95 05/05/22 03:00 36.7 C 80 18 123/69 99 05/04/22 23:00 89 05/04/22 21:45 05/04/22 20:00 05/04/22 22:44 36.6 C 89 18 111/68 94 05/04/22 19:00 36.4 C L 94 H 20 112/68 96 O2 Del Method O2 Del Method O2 Flow Rate 05/05/22 15:02 Room Air 05/05/22 14:32 Room Air 05/05/22 14:17 Room Air 05/05/22 13:55 Room Air 05/05/22 13:45 Room Air 05/05/22 13:35 Oxymask 4 05/05/22 13:25 Oxymask 6 05/05/22 10:39 Room Air 05/05/22 09:00 05/05/22 07:39 Room Air 05/05/22 03:00 Room Air 05/04/22 23:00 05/04/22 21:45 Room Air 05/04/22 20:00 Room Air 05/04/22 22:44 Room Air 05/04/22 19:00 Room Air Pain Intensity Left Arm: Pain Intensity: 4 Transfer of Care Handoff Completed per policy Notes Mental Status: alert / awake / arousable and participated in evaluation Patient Amnestic to Procedure: Yes Nausea / Vomiting: adequately controlled Pain: adequately controlled Airway Patency, RR, SpO2: stable & adequate BP & HR: stable & adequate Hydration State: stable & adequate Anesthetic Complications: no major complications apparent and Pt Satisfied with anesthetic care
--- NOTE | 2022-05-05 16:44 | Hospitalist Progress Note ---
Date of Service May 05, 2022 Assessment & Plan (1) Cellulitis of left arm: (2) Abscess of left arm: Plan 57-year-old male with PMH of ventral hernia and tobacco abuse presented to the ED 05/03 from his PCP office with progressive redness/swelling and pain in the left elbow and upper extremity. He is being managed for the following: Severe sepsis POA: Tachycardia, leukocytosis and elevated lactate level on the background of left upper extremity cellulitis with presumed abscess. Left upper extremity cellulitis/abscess At presentation, patient tachycardic and had leukocytosis. Patient was sent from PCP office (see above). Admitting CT of left humerus and left forearm: 1. The examination is significantly degraded by streak artifact. 2. No bony abnormality seen involving the left humerus or forearm. 3. Superficial and deep soft tissue edema is present throughout the left upper extremity as above. Correlate clinically for evidence of cellulitis/infection. No soft tissue gas is identified. 4. There is marked heterogeneity throughout the left upper extremity musculature consistent with a nonspecific myositis. This may be infectious. Rhabdomyolysis could also potentially have this appearance and clinical correlation will be essential. 5. There is a small olecranon bursal fluid collection. The sterility of this fluid cannot be assessed by imaging. 6. Question an additional small low-attenuation collection within the proximal extensor compartment of the forearm. Again, the sterility of this fluid cannot be assessed by imaging. 05/03 admitting blood culture: Pending 05/05 left elbow operative culture: pending WBC trending down, afebrile Continue clindamycin 05/03, Zosyn 05/03, vancomycin /. Orthopedic on board, s/p s/p irrigation and debridement left elbow, fascia and abscess 05/[address] Gregory ID consulted, await recs. DVT prophylaxis: SCDs, ambulation. Likely chemoPx blue when bleeding risk deemed minimal Full code Admission and Anticipated Discharge Date Admission Date: May 03, 2022 Subjective Patient seen and examined at bedside as a follow-up of severe sepsis POA and cellulitis/abscess of left arm. Patient was sitting up in bed, eating dinner, on room air, NAD, reports no new acute event overnight, reports improving left upper extremity pain, reports feeling better. Pt is s/p irrigation and debridement left elbow, fascia and abscess 05/[address] Gregory. Patient denies any sore throat or chest pain or cough or other review of symptoms. Physical Exam Physical Exam: GENERAL: Alert and oriented x3. NAD, on RA. HEENT: No pallor, no icterus. Pupils equal, round and reactive to light. Oral mucosa moist. NECK: No JVD, no neck masses. HEART: S1 and S2 heard. Regular rate and rhythm. No murmur, no gallop. RESPIRATORY SYSTEM: Normal AP diameter. No accessory muscle use. No wheezing, no crackles. ABDOMEN: Soft, bowel sounds present, nontender, no distention. CENTRAL NERVOUS SYSTEM: No facial droop. Speech is clear. Obeys simple commands. Moves extremities. EXTREMITIES: No ble edema, no erythema seen. LUE: dressing c/d/i, hemovac drain in situ, no collection noted. Results & Data Results & Data ([facility]) Vital Signs (Past 12 Hours) Vital Signs Temp Pulse Pulse Pulse Resp BP Pulse Ox 05/05/22 16:19 78 16 108/68 96 05/05/22 15:02 36.7 C 86 18 102/63 91 05/05/22 14:32 87 16 99/74 L 92 05/05/22 14:17 36.6 C 85 16 123/79 94 05/05/22 13:55 36.9 C 90 17 121/81 94 05/05/22 13:45 92 H 17 130/73 97 05/05/22 13:35 98 H 20 141/83 H 100 05/05/22 13:25 37.2 C 107 H 12 131/89 97 05/05/22 10:39 36.6 C 74 20 128/73 99 05/05/22 09:00 73 05/05/22 07:39 36.6 C 75 18 109/69 95 O2 Del Method O2 Flow Rate 05/05/22 16:19 Room Air 05/05/22 15:02 Room Air 05/05/22 14:32 Room Air 05/05/22 14:17 Room Air 05/05/22 13:55 Room Air 05/05/22 13:45 Room Air 05/05/22 13:35 Oxymask 4 05/05/22 13:25 Oxymask 6 05/05/22 10:39 Room Air 05/05/22 09:00 05/05/22 07:39 Room Air
[2022-05-06] MEDS: VANCOMYCIN HCL 1,250 MG in SODIUM CHLORIDE 0.9% 250 ML IV SCH ×2 (00:57→08:30)
[2022-05-06] MEDS: PIPERACILLIN/TAZOBACTAM 4.5 GM in DEXTROSE 5% 100 ML IV SCH (00:57)
[2022-05-06] MEDS: traMADol HCL 50 MG TABLET PO SCH ×3 (03:03→20:25)
[2022-05-06] MEDS: ACETAMINOPHEN 500 MG TAB PO SCH ×3 (03:04→20:25)
[2022-05-06] MEDS: CLINDAMYCIN/D5W 900 MG/50 ML BAG IV SCH ×3 (05:30→20:25)
[2022-05-06] MEDS: oxyCODONE HCL IR 5 MG TAB (IMMEDIATE RELEASE) PO PRN ×2 (06:09→18:04)
[2022-05-06] MEDS ORDERED: VANCOMYCIN LEVEL ONE (07:30)
[2022-05-06 08:28] LABS: Hematocrit (blood only) 32.4 % (42.0-52.0); Mean Corpuscular Hemoglobin 32.1 pg (25.0-34.0); Mean Corpuscular Volume 94.5 fL (80.0-100.0); Mean Platelet Volume 10.7 fL (9.4-12.4); Platelet Count 171 K/uL (130-400); RDW Coefficient of Variation 13.7 % (11.5-14.5); RDW Standard Deviation 47.2 fL (36.4-46.3); Red Blood Count 3.43 M/uL (4.70-6.10)
[2022-05-06 08:29] LABS: BUN Creatinine Ratio 24.1 (10-20); Calcium 8.1 mg/dl (8.5-10.1); Est GFR (African American) 111.6 ml/min; Est GFR (Non-African American) 96.3 ml/min; Magnesium 2.4 mg/dl (1.7-2.4); Phosphorus 3.6 mg/dl (2.5-4.9); Potassium 4.4 mmol/L (3.5-5.1)
[2022-05-06] MEDS: ASPIRIN 81 MG ECTAB PO SCH (08:30)
[2022-05-06] MEDS: MULTIVITAMIN TAB PO SCH (08:31)
[2022-05-06 09:01] LABS: Basophils # (auto) 0.04 K/uL (0-0.2); Basophils % (auto) 0.3 %; Echinocytes 1+; Eosinophils # (auto) 0.07 K/uL (0-0.50); Eosinophils % (auto) 0.5 %; Immature Granulocytes % (auto) 1.5 %; Lymphocytes # (auto) 1.26 K/uL (1.2-3.4); Lymphocytes % (auto) 9.4 %; Monocytes # (auto) 0.98 K/uL (0.11-0.59); Monocytes % (auto) 7.3 %; Neutrophils # (auto) 10.85 K/uL (1.40-6.50)
--- NOTE | 2022-05-06 11:04 | Orthopedic Progress Note ---
Date of Service May 06, 2022 Assessment & Plan (1) Status post incision and drainage: Plan: Patient was educated regarding today's findings. Conservative care measures were discussed. He is much more comfortable than when I saw him initially. Because of the soaked dressings, his Braden wrap, gauze, and ABDs were removed. The inner gauze was left in place. His Voss drain was visible under the gauze. Arm erythema and swelling have reduced drastically. New 4 x 4's, ABDs, Kerlix, and Braden wrap were placed. Continue antibiotics. Anticipate that his Donya drain will be removed either later today or tomorrow. Continue ice and elevation of the arm to reduce pain and swelling. He was encouraged to practice gentle range of motion of the elbow to prevent stiffness. Admission and Anticipated Discharge Date Admission Date: May 03, 2022 Subjective Patient is seen in his room today. States he feels well. His pain is much better. He can now move his elbow which she has not been able to do since Tuesday morning. He denies any fevers or chills. He is watching TV. He states around 3 AM the drain fell out of his dressing when he was getting up to go to the bathroom. He denies any numbness or tingling. No other complaints. Physical Exam Physical Exam: General: Well-developed, well-nourished, middle-aged male, in no acute distress. Sitting in bed. Conversive. Watching TV. Skin: Warm and dry with good turgor. Erythema and warmth have reduced drastically. Swelling to his hand is also reduced drastically. His postsurgical dressings are in place but are thoroughly soaked with blood and serous fluid. Musculoskeletal: Patient has intact motor function of the fingers and wrist without pain. He is able to flex and extend his elbow without pain. Flexion to around 100 degrees, lacks about 30 degrees of extension. Full supination and pronation. Neurologic: Gross sensation is intact across the left arm by soft touch. Peripheral pulses are 2+. Results & Data ([facility]) Vital Signs (Past 12 Hours) Vital Signs Temp Pulse Pulse Resp BP Pulse Ox O2 Del Method 05/06/22 07:34 36.3 C L 57 L 18 115/70 98 Room Air 05/06/22 02:52 36.3 C L 66 16 117/73 97 Room Air 05/05/22 23:00 69 02/08/23 23:01 36.2 C L 64 16 100/63 96 Room Air Laboratory Results CBC obtained today shows a white count of 13.4. This is down from 19.98 on May 03. H&H of 11.0 and 32.4. PRP is relatively unremarkable. Vancomycin level is within range at 14.4.
--- NOTE | 2022-05-06 15:28 | Hospitalist Progress Note ---
Date of Service May 06, 2022 Assessment & Plan (1) Cellulitis of left arm: (2) Abscess of left arm: Plan 57-year-old male with PMH of ventral hernia and tobacco abuse presented to the ED 05/03 from his PCP office with progressive redness/swelling and pain in the left elbow and upper extremity. He is being managed for the following: Severe sepsis POA: Tachycardia, leukocytosis and elevated lactate level on the background of left upper extremity cellulitis with presumed abscess. Left upper extremity cellulitis/abscess At presentation, patient tachycardic and had leukocytosis. Patient was sent from PCP office (see above). Admitting CT of left humerus and left forearm: 1. The examination is significantly degraded by streak artifact. 2. No bony abnormality seen involving the left humerus or forearm. 3. Superficial and deep soft tissue edema is present throughout the left upper extremity as above. Correlate clinically for evidence of cellulitis/infection. No soft tissue gas is identified. 4. There is marked heterogeneity throughout the left upper extremity musculature consistent with a nonspecific myositis. This may be infectious. Rhabdomyolysis could also potentially have this appearance and clinical correlation will be essential. 5. There is a small olecranon bursal fluid collection. The sterility of this fluid cannot be assessed by imaging. 6. Question an additional small low-attenuation collection within the proximal extensor compartment of the forearm. Again, the sterility of this fluid cannot be assessed by imaging. 05/03 admitting blood culture: NG48H, Pending 05/05 left elbow operative culture: Gr A beta strep, f/u final result WBC elevated but stable, afebrile Continue clindamycin 05/03, Zosyn 05/03, vancomycin 05/03.--ID evaled, reviewed ID recs 05/06 -- zosyn and vanc dropped 05/06; c/w clinda 05/03 iv while inpatient Orthopedic on board, s/p s/p irrigation and debridement left elbow, fascia and abscess 05/[address] Gregory Pain Mx. DVT prophylaxis: SCDs, ambulation. Likely chemoPx blue when bleeding risk deemed minimal Full code Dispo: likely DC blue. med/surg. Admission and Anticipated Discharge Date Admission Date: May 03, 2022 Subjective Patient seen and examined at bedside as a follow-up of severe sepsis POA and cellulitis/abscess of left arm. Patient was lying in bed, on room air, NAD, reports no new acute event overnight, reports improving left upper extremity pain/decreasing use of pain meds, reports continued feeling better. Pt is s/p irrigation and debridement left elbow, fascia and abscess 05/[address] Gregory. Patient denies any sore throat or chest pain or cough or other review of symptoms. Physical Exam Physical Exam: GENERAL: Alert and oriented x3. NAD, on RA. HEENT: No pallor, no icterus. Pupils equal, round and reactive to light. Oral mucosa moist. NECK: No JVD, no neck masses. HEART: S1 and S2 heard. Regular rate and rhythm. No murmur, no gallop. RESPIRATORY SYSTEM: Normal AP diameter. No accessory muscle use. No wheezing, no crackles. ABDOMEN: Soft, bowel sounds present, nontender, no distention. CENTRAL NERVOUS SYSTEM: No facial droop. Speech is clear. Obeys simple commands. Moves extremities. EXTREMITIES: No ble edema, no erythema seen. LUE: dressing c/d/i. Results & Data Results & Data ([facility]) Vital Signs (Past 12 Hours) Vital Signs Temp Pulse Pulse Resp BP Pulse Ox O2 Del Method 05/06/22 13:27 61 05/06/22 12:22 36.4 C L 66 18 121/70 99 Room Air 05/06/22 07:34 36.3 C L 57 L 18 115/70 98 Room Air
[2022-05-07] MEDS: ACETAMINOPHEN 500 MG TAB PO SCH ×2 (04:22→11:10)
[2022-05-07] MEDS: traMADol HCL 50 MG TABLET PO SCH ×2 (04:23→11:10)
[2022-05-07] MEDS: CLINDAMYCIN/D5W 900 MG/50 ML BAG IV SCH ×2 (05:37→11:49)
[2022-05-07 06:02] LABS: Hematocrit (blood only) 33.3 % (42.0-52.0); Hemoglobin 11.6 g/dl (14.0-18.0); Mean Corpuscular Hgb Conc 34.8 g/dL (32.0-36.0); Mean Corpuscular Volume 91.7 fL (80.0-100.0); Platelet Count 256 K/uL (130-400); RDW Coefficient of Variation 13.7 % (11.5-14.5); RDW Standard Deviation 46.7 fL (36.4-46.3); Red Blood Count 3.63 M/uL (4.70-6.10); White Blood Count 12.91 K/ul (4.8-10.8)
[2022-05-07 06:20] LABS: Calcium 8.4 mg/dl (8.5-10.1); Potassium 4.2 mmol/L (3.5-5.1)
[2022-05-07 06:26] LABS: BUN Creatinine Ratio 22.2 (10-20); Creatinine Clr Calc Pharmacy 107.6 ml/min; Est GFR (African American) 112.7 ml/min; Est GFR (Non-African American) 97.3 ml/min
[2022-05-07] MEDS: ASPIRIN 81 MG ECTAB PO SCH (07:05)
[2022-05-07] MEDS: MULTIVITAMIN TAB PO SCH (07:05)
--- NOTE | 2022-05-07 10:28 | Orthopedic Progress Note ---
Date of Service May 07, 2022 Assessment & Plan (1) Abscess of left arm: Plan: Patient's symptoms are improving since initial admission and I&D. He has improvement with erythema and drainage is slowing. He had dressing change and packing placed. He was advised on keeping this clean and dry. He will continue with gentle range of motion per Dr. Gregory's recommendations to 0-90 degrees. He is wanting to be discharged today to home, however we did discuss the importance of staying until final cultures are read. Reviewed infectious disease consultation. At this time they recommend he continue IV antibiotics, clindamycin, and once discharged he can continue with clindamycin 300 mg every 6 hours x10 days or until 05/17. This was sent to patient's listed pharmacy. Patient is orthopedically cleared to be d/c home pending final culture. Patient seemed agreeable to stay until final cultures were obtained. Patient will be followed in our office as an outpatient. The follow up appointment is scheduled on Tuesday with DJ at 11:30 on 05/11. He can continue with pain regimen per primary. He was strongly advised once discharged if he develops any fever, chills, night sweats, nausea or vomiting redness down the arm or worsening symptoms or concerns to go to the ER if the office is not available Present on Admission?: Yes (2) Cellulitis of left arm: Admission and Anticipated Discharge Date Admission Date: May 03, 2022 Subjective Patient is a 57-year-old male who is right-hand dominant. He is status post an I&D of the left elbow with Dr. Heaven ferrera on 05/05/2022. Patient was seen bedside this AM. He is alert and oriented x3 pleasant and conversive. Patient states that he is going home today. He is wanting to know what the plan is. He reports that the left upper extremity is feeling much better. He states he has a stinging sensation in the elbow area. He denies any pain going down the arm or any paresthesia. He denies any fever or chills. He states overall the elbow feels much better and is able to move it better. He denies any night sweats, nausea or vomiting, chest pain or shortness of breath. Review of Systems Review of Systems: Please refer to HPI Physical Exam Physical Exam: General: Patient is alert and oriented x3 in no acute distress Musculoskeletal/integumentary: Dressing is intact with dried soiling visible. This was removed. Patient has minimal edema over forearm and elbow. Donya is in place with minimal drainage. Minimal erythema that is receding from outlined area and is more concentrated closer to the elbow. Patient has mild tenderness surrounding the elbow. Negative for any fluctuance or induration. Sutures are in place over proximal incision small area remains open with [place]. This was then wrapped with Kerlix and Braden dressing. Patient was able to fully supinate and pronate forearm. He is able to almost get full extension proximately -5 degrees. Able to tolerate flexion to approximately 130 degrees. Patient reports no pain at this time with any of the motion. Radial pulse 2+. Able to fully flex and extend digits. Sensation is intact over left upper extremity. Donya was easily removed. Opened area was then packed and new dressing applied with Xeroform 4 x 4's and ABD pads. This was then wrapped with Kerlix and Braden dressing. . Results & Data ([facility]) Vital Signs (Past 12 Hours) Vital Signs Temp Pulse Resp BP Pulse Ox O2 Del Method 05/07/22 08:00 36.3 C L 67 18 119/70 95 Room Air 05/06/22 22:58 Room Air Laboratory Results 05/07/22 05/07/22 Range/Units 05:42 05:42 WBC 12.91 H (4.8-10.8) K/ul RBC 3.63 L (4.70-6.10) M/uL Hgb 11.6 L (14.0-18.0) g/dl Hct 33.3 L (42.0-52.0) % MCV 91.7 (80.0-100.0) fL MCH 32.0 (25.0-34.0) pg MCHC 34.8 (32.0-36.0) g/dL RDW Std Deviation 46.7 H (36.4-46.3) fL RDW Coeff of Cinthia 13.7 (11.5-14.5) % Plt Count 256 (130-400) K/uL MPV 10.0 (9.4-12.4) fL Sodium 137 (136-145) mmol/L Potassium 4.2 (3.5-5.1) mmol/L Chloride 103 (98-107) mmol/L Carbon Dioxide 29 (21-32) mmol/L Anion Gap 5 (3-11) BUN 18 (6-23) mg/dl Creatinine 0.81 (0.6-1.4) mg/dl Est Cr Clr Drug Dosing 107.6 ml/min Est GFR ( Amer) 112.7 ml/min Est GFR (Non-Af Amer) 97.3 ml/min BUN/Creatinine Ratio 22.2 H (10-20) Glucose 90 (70-99(Fasting)) mg/dl Calcium 8.4 L (8.5-10.1) mg/dl Microbiology 05/05/22 Unknown Gram Stain - Final Elbow,Left Aerobic and Anaerobic Culture - Preliminary Group A Beta Strep 05/05/22 13:16 Gram Stain - Final Elbow,Left Aerobic and Anaerobic Culture - Preliminary Group A Beta Strep 05/05/22 Unknown Gram Stain - Final Elbow,Left Aerobic and Anaerobic Culture - Preliminary Group A Beta Strep
--- NOTE | 2022-05-07 13:06 | Discharge Summary ---
Date of Service May 07, 2022 Admission HPI Per Admitting Provider This is a 57 y/o male with a PMH of ventral hernia and tobacco use who presents to the ED from his PCP office with progressive redness, swelling and pain in his left elbow and upper extremity. Pt reports dry cracked skin on the elbow as an ongoing issue. Picked at the area three days ago and noted an open area afterwards. Since then he has developed redness on the surrounding area, pain, and swelling which has gradually worsened since then. Limited ability to move the elbow due to the swelling and pain. May have numbness, tingling, burning sensation in hand, mostly when he's walking around and the arm is down by his side. This improves with sitting and elevating the extremity. Chills x 2 days. No documented fevers. Clear and purulent drainage from area over the weekend but only small amounts at a time. No bleeding from the area. Headache x 2 days. Chronic back pain but no worse than usual. Loss of appetite, stomach feels unsettled but no nausea or vomiting. Has been taking ibuprofen and ac etaminophen "by the handful" multiple times per day for the pain with limited relief. Estimates 5-6 ibuprofen at a time, 4 acetaminophen. No similar symptoms prior. He had a follow-up appt for his back scheduled today and brought up the arm when he was there. Admission Exam Per Admitting Provider Constitutional: well developed and well nourished; no acute distress Eyes: + anicteric sclerae Neck: trachea midline Respiratory: no respiratory distress and no labored breathing Auscultation: lungs clear to auscultation bilaterally; no rales, no rhonchi and no wheezes Cardiovascular: Rate/Rhythm: regular rhythm and + tachycardic Vessels: dorsalis pedis pulses present and radial pulses present Extremities: no pedal edema Gastrointestinal (Abdomen): Inspection/Auscultation: normal bowel sounds; abdomen not distended Percussion/Palpation: abdomen soft; abdomen nontender Musculoskeletal: marked edema and tenderness of the LUE from wrist to axilla; able to move fingers, burner operator intact, but extremely limited flexion of left elbow due to swelling and pain; tender to touch, markedly over the left elbow joint but tenderness extends over entire swollen area; no significant left axillary or infraclavicular LAD Skin: erythema and warmth extending from left elbow, both distal and proximally - area marked by orthopedics to monitor for further extension Neurologic: sensation intact left hand Psychiatric: A+Ox3, euthymic affect Principal Diagnosis Cellulitis of left arm Abscess of left arm Severe sepsis POA Hyponatremia Discharge Exam GENERAL: Alert and oriented x3. NAD, on RA. HEENT: No pallor, no icterus. Pupils equal, round and reactive to light. Oral mucosa moist. NECK: No JVD, no neck masses. HEART: S1 and S2 heard. Regular rate and rhythm. No murmur, no gallop. RESPIRATORY SYSTEM: Normal AP diameter. No accessory muscle use. No wheezing, no crackles. ABDOMEN: Soft, bowel sounds present, nontender, no distention. CENTRAL NERVOUS SYSTEM: No facial droop. Speech is clear. Obeys simple commands. Moves extremities. EXTREMITIES: No ble edema, no erythema seen. LUE: dressing c/d/i. Discharge Data Allergies Allergy/AdvReac Type Severity Reaction Status Date / Time No Known Allergies Allergy Unverified 05/03/22 17:23 Consultations 05/03/22 17:27 ED Decision to Admit Stat 05/03/22 18:26 Consult Orthopedic Surgery Routine 05/04/22 15:10 Consult Infectious Diseases Routine Procedures Performed Operation Date: 05/05/22 11:10 Actual Procedures p Irrigation and Debridement Left Elbow, Fascia and Abscess(Left) - Mendoza Gregory MD Ordered Studies 05/03/22 14:42 CT forearm LT w con Stat CT humerus LT w con Stat Hospital Course (1) Cellulitis of left arm: (2) Abscess of left arm: Plan 57-year-old male with PMH of ventral hernia and tobacco abuse presented to the ED 05/03 from his PCP office with progressive redness/swelling and pain in the left elbow and upper extremity. He was managed for the following: Severe sepsis POA: Tachycardia, leukocytosis and elevated lactate level on the background of left upper extremity cellulitis with presumed abscess. Left upper extremity cellulitis/abscess At presentation, patient tachycardic and had leukocytosis. Patient was sent from PCP office (see above). Admitting CT of left humerus and left forearm: 1. The examination is significantly degraded by streak artifact. 2. No bony abnormality seen involving the left humerus or forearm. 3. Superficial and deep soft tissue edema is present throughout the left upper extremity as above. Correlate clinically for evidence of cellulitis/infection. No soft tissue gas is identified. 4. There is marked heterogeneity throughout the left upper extremity musculature consistent with a nonspecific myositis. This may be infectious. Rhabdomyolysis could also potentially have this appearance and clinical correlation will be essential. 5. There is a small olecranon bursal fluid collection. The sterility of this fluid cannot be assessed by imaging. 6. Question an additional small low-attenuation collection within the proximal extensor compartment of the forearm. Again, the sterility of this fluid cannot be assessed by imaging. 05/03 admitting blood culture: NG48H, Pending 05/05 left elbow operative culture: Gr A beta strep, sensitive to clinda WBC elevated but stable, afebrile Continue clindamycin 05/03, to oral on dc upto 05/17/2022 Orthopedic on board, s/p s/p irrigation and debridement left elbow, fascia and abscess 05/[address] Gregory Pain Mx. f/u w/ pcp and ortho in a week time. 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 DVT prophylaxis: SCDs, ambulation. Full code Pt being discharged to home w/ following instructions at the point of discharge: Follow-up with the primary care physician within a week time and likely will need CBC/CMP. You will be discharged on antibiotic for 10 more days upon discharge. Complete antibiotic course. Probiotics will be added. Follow-up with orthopedics DrAvril In a week time of discharge. You will be discharged with a few days worth of pain medication, you can use them for severe pain. You can use [id number] Tylenol for [id number] pain. If your pain is worsening, you will need evaluation at PCP or orthopedics office for further pain management/prescription. If you start developing any fever or chills or worsening drainage from your left upper arm, you will need to contact emergency or the orthopedic/PCP office. Take your medications as prescribed. Please make sure that you are able to get your medications today by calling your pharmacy before you leave the hospital so that your treatment continuity is not broken. [facility] Attestation I certify that this patient is under my care and that I, or a physicians assistant designer working with me, had a face to-face encounter that meets the pending sale to [facility] [id number] encounter requirements with this patient. The encounter with the patient was in whole, or in part, for the following medical condition, which is the primary reason for home health care (list medical condition): I certify that, based on my findings, the following services are medically necessary home health services: My clinical findings support the need for the above services because: Further, I certify that my clinical findings support that this patient is homebound (i.e. absences from home require considerable and taxing effort and are for medical reasons or [facility] or infrequently or of short duration when for other reasons) because: Certification for Home Health Services: Based on the above findings, I certify that this patient is confined to the home and needs intermittent mcc care, physical therapy and/or speech therapy or continues to need occupational therapy. The patient is under my care, and I have initiated the establishment of the plan of care. This patient will be followed by a physician who will periodically review the plan of care. Total Time Total Time Spent Total Time Spent (In Minutes): 45 Discharge Plan Discharge Items Patient Disposition: Home - Self-Care Reason For Visit: SEPSIS, LUE CELLULITIS Discharge Diagnosis: Cellulitis of left arm Abscess of left arm Severe sepsis POA Hyponatremia Activity: Per Instructions section Non-emergency contact: Primary Care Provider Call non-emergency contact if: you have any medication questions, your symptoms worsen, your pain is not controlled, your pain is worsening and your temperature is above 101.5 Follow-up/Referrals: Mario Callaway PA-C [Physician Insurance Verification Rep] - 05/11/22 11:30 am Ender Alarcon PA-C [Primary Care Provider] - (Date & Time 05/11/2022 11:00 AM Provider Ender Alarcon PA-C Department [facility] ) Diet: Regular Addtl Attending Provider Instructions: Follow-up with the primary care physician within a week time and likely will need CBC/CMP. You will be discharged on antibiotic for 10 more days upon discharge. Complete antibiotic course. Probiotics will be added. Follow-up with orthopedics DrAvril In a week time of discharge. You will be discharged with a few days worth of pain medication, you can use them for severe pain. You can use [id number] Tylenol for [id number] pain. If your pain is worsening, you will need evaluation at PCP or orthopedics office for further pain management/prescription. If you start developing any fever or chills or worsening drainage from your left upper arm, you will need to contact emergency or the orthopedic/PCP office. Take your medications as prescribed. Please make sure that you are able to get your medications today by calling your pharmacy before you leave the hospital so that your treatment continuity is not broken. Addtl Information Resources Director Provider Instructions: Keep dressing in place. Do not get wet Continue to monitor skin if any redness, increased drainage, worsening of pain contact the office at [phone] if office is not available return to the ER If any fever, chills, night sweats, nausea or vomiting contact office or go to the ER Okay to do gentle range of motion of the left elbow to straighten the elbow completely if able to, gentle rotation of the forearm and bending the elbow to 90 degrees if tolerated daily may use ice over the elbow for comfort if needed [id number]. DO NOT use heat!! Antibiotic, Clindamycin was sent to your pharmacy. Take one pill by mouth 4 times a day for 10 days. I recommend eating yogurt daily or take an over the counter probiotic daily while taking antibiotics If any severe abdominal cramping or diarrhea occurs contact the office or PCP immediately Follow up as scheduled in our out patient office, [facility] as scheduled on 05/11/22 at 11:30. Please call the office if any questions or concerns, Pending Studies at Discharge: Yes Stand-Alone Forms: My [facility] kabuku, Smoking Cessation Medications and DC Order Prescriptions: New clindamycin HCl [Cleocin HCl] 300 mg capsule 300 mg PO Q6H 10 Days Qty: 40 0RF oxycodone-acetaminophen [Percocet] 5-325 mg tablet 1 tab PO Q8H PRN (Reason: pain (scale score 7-10)) 5 Days Qty: 15 0RF Probiotic 15 billion cell capsule, sprinkle 1 cap PO DAILY Qty: 14 0RF Rx Instructions: do not crush/chew/cut; swallow whole OR may open and sprinkle in cold drink/food Continued aspirin 81 mg Tablet,Delayed Release (Dr/Ec) 81 mg PO DAILY multivitamin Tablet 1 tab PO DAILY Discharge Orders: Discharge Order (Routine); Ordered 05/07/22 Ordered By: Juan Landis Admission Data Admit Date/Time: 05/03/22 18:09 Attending Provider: Juan Landis Admit Provider: Yolande Sommers Primary Care Provider: Ender Alarcon Other Providers: Yolande Sommers ; Mendoza Gregory ; Gómez Michel ; Dyllan Lane ; Larry Wen I. ; Chad Langley II ; Esme Venegas ; Nickolas Rios ; Vinicius Olson ; Darvin Murillo
== END 2022-05-07 14:51 | disposition home or self-care (01) | DRG 854 ==
LOC: ED 14:17 → SUATTDRO 18:09 → 2S 18:09 → 3N 05-06 21:53